=== PATIENT | female | born 1995 | race Caucasian/White ===

== ENCOUNTER 2024-11-05 10:05 | Observation (INO) ==
[2024-11-05 11:01] VITALS: RESP 18; TEMP 98.1
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
[2024-11-05] MEDS ORDERED: OXYTOCIN 30 UNITS/NSS 30 UNITS/500 ML BAG IV PRN (12:02)
[2024-11-05] MEDS ORDERED: LACTATED RINGER'S 1,000 ML IV PRN (12:02)
[2024-11-05] MEDS ORDERED: LIDOCAINE 1% LOCAL 20 ML VIAL INFIL PRN (12:02)
--- OUTSIDE RECORDS SUMMARY | 2024-11-05 12:03 | External Medical Summary | Summary of Care ---
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 Name Role Phone Unavailable Primary Care Provider Unavailabl e Reason for Visit * Reason Onset Date Comments Referral 10/14/2024 Encounter Details Date Type Department Care Team (Late st Contact Info) Description 10/14/2024 Telephone Divinity Teacher Obstetrics Maternal Medicine, [place] [address], [place] [id number] [place], Nurse Divinity Teacher [facility] [address] [place] [address] Referral Allergies Active Allergy Reactions Criticality Noted Date Comments Ciprofloxacin Nausea/vomiting Low 10/21/2012 documented as of this encounter (statuses as of 10/14/2024) Medications 27-1 MG Oral Tablet Take 1 Tablet by mouth every evening. Active Nicoderm CQ 7 MG/24HR Transdermal Patch [address] 1 Patch topically on the skin daily. 4 Active Methylphenidate HCl 5 MG Oral Tablet (Ritalin) Take 5 mg by mouth twice a day 4 Active Magnesium 250 MG Oral Capsule Take by mouth. Ac tive Famotidine 40 MG Oral Tablet (Pepcid) Take 1 Tablet by mouth in the morning. Active Omeprazole 20 MG Oral Capsule Delayed Release (PriLOSEC) Take 1 Capsule by mouth in the morning. 30 Capsule 1 5 Active OneTouch Verio Flex System w/Device KitIndications:G estational diabetes mellitus (GDM), antepartum, gestational diabetes method of control unspecified Use to test blood sugars 4 times daily (fasting, 1 hour after breakfast, lunch, and dinner) 1 Kit 5 Active RenaMed BiologicsTouch Verio In Vitro Strip (Glucose Blood)Indication s:Gestational diabetes mellitus (GDM), antepartum, gestational diabetes method of control unspecified Use to test blood sugars 4 times daily (fasting, 1 hour after breakfast, lunch, and dinner) 125 Strip 6 5 Active RenaMed BiologicsTouch Delica Lancets 30GIndications:G estational diabetes mellitus (GDM), antepartum, gestational diabetes method of control unspecified Use to test blood sugars 4 times daily (fasting, 1 hour after breakfast, lunch, and dinner) 200 Each 6 5 Active documented as of this encounter (statuses as of 10/14/2024) Active Problems Problem Noted Date Diagnosed Date History of IUFD 09/30/2024 Overview (09/30/2024): 33 wks following PPROM and cord prolapse. MFM recommends twice weekly NSTs at 31 weeks, delivery between 39w0d and 39w6d - can consider earlier for significant maternal anxiety. Pt requests weekly BPPs due to transportation concerns. 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 S/p right salping-oophorectomy Tumor confined to ovary. Fallopian tube negative for tumor; did not need treatment beyond surgery. Attention deficit hyperactivity disorder (ADHD) 06/17/2024 Overview (07/29/2024): History of ADHD On medication since teens. Ritalin stopped with knowledge of the Pt had upcoming appointment with Psych to discuss restart. Marijuana use during 06/17/2024 Overview (07/29/2024): Illicit use. Pt states a few times monthly. Last used in May 2024 Assessment & Plan (07/29/2024 1:36 PM EST): CONSIDERATIONS: Chemicals found in marijuana, such as tetrahydrocannabinol (THC), are distributed to the brain and fat and cross the placenta. THC also appears in breast milk. In utero exposure is associated with short and long-term morbidity. A positive screen result is reported to [facility]. RECOMMENDATIONS: Abstain from marijuana use in and while ; avoid secondhand exposure. Discontinue use of marijuana for medicinal purposes in favor of an alternative therapy for which there are better -specific safety data. Assessment & Plan (07/18/2024 4:12 PM EST): Reports she discontinued with . Tobacco use affecting , antepartum 05/31 Overview (07/29/2024): Smokes cigarettes < 1/2 pack per day Using Nicoderm patches currently Trying to cut down and quit Assessment & Plan (07/29/2024 1:35 PM EST): Strongly advised patient to stop using tobacco. Discussed that tobacco use is associated with increased risks of spontaneous miscarriage, labor and delivery, premature rupture of membranes, growth restriction, stillbirth, SIDS postnatally, and placental abnormalities such as previa or abruption. Smoking cessation aids such as the nicotine patch or Zyban are considered safer alternatives to tobacco use during . Encouraged patient to discuss with her primary provider for prescribing. For patients who report smoking 1 pack per day of cigarettes or greater during , we recommend Maternal Medicine ultrasound for growth at 28-30 weeks. Advised patient that the most successful method to quit smoking is if those around you do not smoke as well. Assessment & Plan (07/18/2024 4:10 PM EST): Reports smoking 4-5 cigarettes per day. Recommend cessation. , supervision, high-risk 06/17/2024 Overview (07/29/2024): 07/2021: intrauterine demise at 33 weeks --Pt states due to PROM and cord prolapse. Assessment & Plan (07/29/2024 1:41 PM EST): CONSIDERATIONS: The cause of a demise/stillbirth remains unidentified in almost 50% of cases, despite all evaluative efforts. Per review of available records regarding autopsy, karyotype, and placental examination from patient's prior intrauterine demise, the etiology of the prior loss was identified as PREMATURE RUPTURE OF MEMBRANES (PPROM) and cord prolapse . In pregnancies complicated by a previous stillbirth, the risk for stillbirth is up to 6-fold higher. The risk of recurrence is greater following gestational losses that occurred prior to 27 weeks than for later losses. RECOMMENDATIONS: Screen (if not already done) for syphilis, thyroid disorders, diabetes, and antiphospholipid antibody syndrome. Perform dating ultrasound to ensure accurate dating of . [facility] ultrasound for anatomy at 19-20 weeks gestation. Ultrasound for growth every 4 weeks starting at 28 weeks gestation. For loss > 20 weeks, twice weekly surveillance starting 1-2 weeks prior to the gestational age of the prior demise (though no earlier than 28 weeks and no later than 32 weeks). If greater than 32 weeks, begin 2x weekly NST at 32 weeks. Recommend delivery at 39 weeks (unless alternate timing is indicated per additional comorbidities). If elective early term delivery is being considered (37w0d to 38w6d) by her delivering provider secondary to severe anxiety, recommend Booster Pump Oiler counseling to include the potential risks of early term delivery. Assessment & Plan (07/18/2024 4:13 PM EST): Patient reports she had a large gush of fluid and felt like something was coming out. She called her OB and was told to monitor. The next morning patient reports she was evaluated and noted to have had a cord prolapse and fetus had already demised. Patient reports she did feel movement prior to PPROM. Near syncope 10/21/2012 Irritable bowel syndrome 10/19/2012 Depression complicating , antepartum Overview (07/29/2024): History of depression & anxiety No current medications Assessment & Plan (07/29/2024 1:41 PM EST): CONSIDERATIONS: Untreated maternal anxiety and/or depression may be associated with an increased risk of multiple poor obstetrical outcomes including miscarriages, low weight, and delivery. Women with a history of anxiety or depression are at risk for recurrence both during and/or the period. Studies of first-trimester SSRI exposure do not demonstrate consistent data to support an increased risk for structural malformations. Anti-anxiety or depression medications have been associated with transient effects (withdrawal syndrome). RECOMMENDATIONS: Mental illness can and should be treated during when the benefits of treatment outweigh potential risks. Referral to behavioral health services as clinically indicated. Estimated Date of Delivery Comme nts Yes 11/28/2024 Based on Ultraso und documented as of this encounter (statuses as of 10/14/2024) Resolved Problems Problem Noted Date Diagnosed Date Resolved Date with 22 completed weeks gestation 07/29/2024 07/29/2024 cardiac anomaly compli cating , antepartum 07/18/2024 09/27/2024 Overview (07/29/2024): See [facility] ultrasound report from 07/18/2024 Genetics counseling completed 07/20/2024 Pediatric Cardiology appointment scheduled 08/02/2024 Assessment & Plan (09/09/2024 3:27 PM EST): No VSD seen at cardiology visit 08/02. Also not seen today. Assessment & Plan (07/18/2024 4:16 PM EST): Muscular VSD measuring 1.5mm noted on ultrasound today. The remainder of the cardiac anatomy appeared unremarkable. We discussed that while large VSDs may require surgical repair, the natural history of most small muscular VSDs is to close prior to or within the first years of life. VSDs are associated with chromosomal aneuploidy. This is unlikely based on otherwise unremarkable anatomy and low risk Qnatal. Offered genetic counseling, which patient declined. Recommend follow up with pediatric cardiology. High-risk 06/17/2024 09/27/19 25 Syncope and collapse 10/19/2012 013 Asthma with severity to be determined 02/21/2010 06/30/2011 Overview (12/10/2015): Per Asthma Taxonomy ICD-10 update of inactive term Other acne 08/28/2008 02/14/2011 Routine child health exam 07/22/2002 Asthma, allergic 07/22/2002 02/21/2010 documented as of this encounter (statuses as of 10/14/2024) Immunizations Name Administration Dates Next Due H1N1 2008 Influenza, Intranasal 07/16/2009 HPV Vaccine, 4-Valent 08/28/2008,04/03/2008,10/2007 Influenza Vaccine, Live, Int ranasal, Trivalent (Flumist) 06/30/2011 Meningococcal Conjugate Vacc ine (Menactra/Menveo) 11/07/2011 Pneumococcal Polysaccharide PPV23 (Pneumovax) 05/06/2013 TDAP, Age 7 and older, IM (Adacel) 09/13/2024, Varicella Vaccine (Chicken Pox) 07/16/2009 documented as of this encounter Social History Tobacco Use Types Packs/Day Years Used Date Smoking Tobacco: Every Day Cigarettes 1 14.8 Started: 2009 Smokeless Tobacco: Never Comments:age 14 Smokes cigarettes , 1/2 pack per day Alcohol Use Standard Drinks/Week Comments Not Currently 0 (1 standard drink = 0.6 oz pur e alcohol) Hunger Vital Sign Answer Date Recorded Within the past 12 months, y ou worried that your food would run out before you got the money to buy more. Patient declined Within the past 12 months, t he food you bought just didn't last and you didn't have money to get more. Patient declined [place] Depression Scale Answer Date Recorded [place] Depression Scale Total 11 06/17/2024 The thought of harming myself has occurred to me . Never 06/17/2024 Childcare Answer Date Recorded Do you feel overwhelmed with taking care of a child, family member or friend? No 06/17/2024 Does your family need help f inding childcare? (Household - for ages 0-17 years) Not on file 06/17/2024 Clothing Answer Date Recorded Have you been unable to get clothing when it was really needed? No 06/17/2024 Is your family able to get c lothes or diapers when needed? (Household - for ages 0-17 years) Not on file 06/17/2024 Personal Safety Answer Date Recorded Do you feel unsafe or have concerns for your saf ety? No 06/17/2024 Do you have concerns for you r family's safety? (Household - for ages 0-17 years) Not on file 06/17/2024 Utilities Answer Date Recorded Do you have trouble paying y our heating, water, or electric bill? No 06/17/2024 Is your family able to pay t he heat, water, or electric bill? (Household - for ages 0-17 years) Not on file 06/17/2024 Does your family have access to good internet? (Household - for ages 0-17 years) Not on file 06/17/2024 Employment Status Answer Date Recorded Are you unemployed or without regular income? No 06/17/2024 Does the household have a re lar source of income? (Household - for ages 0-17 years) Not on file 06/17/2024 Social Connections Answer Date Recorded How often do you feel lonely or isolated from those around you? Sometimes 06/17/2024 Financial Resource Strain Answer Date R ecorded Do you have any trouble payi ng for your medications, or do you think you might in the future? No 06/17/2024 Does your family have troubl e paying for medicine? (Household - for ages 0-17 years) Not on file 06/17/2024 Transportation Needs Answer Date Record ed Do you have trouble getting a ride to medical visits or work? (Adult - for ages 18 years and over) Not on file 06/17/2024 Does your family have a hard time getting a ride to doctors visits? (Household - for ages 0-17 years) Not on file 06/17/2024 Has lack of transportation k ept you from medical appointments, meetings, work, or from getting things needed for daily living? Check all that apply. No 06/17/2024 Do you (or your family) have trouble finding or paying for a ride (transportation)? (Household - for ages 0-17 years) Not on file 06/17/2024 Housing Stability Answer Date Recorded Do you currently live in a s helter or have no steady place to sleep at night? No 06/17/2024 Do you think you are at risk of becoming homeless? (Adult - for ages 18 years and over) Not on file 06/17/2024 Does your family worry about paying for your home or becoming homeless? (Household - for ages 0-17 years) Not on file 1 Are you homeless or worried that you might be in the future? Yes 06/17/2024 Are you (or your family) vernell eless or worried that you might be in the future? (Household - for ages 0-17 years) Not on file Food Insecurity Answer Date Recorded Do you need food for this week? No 06/17/2024 Are you able to get enough f ood for your family? (Household - for ages 0-17 years) Not on file 06/17/2024 Does your family need food t his week? (Household - for ages 0-17 years) Not on file 06/17/2024 Do you always have enough fo od for your family? (Household - for ages 0-17 years) Not on file 06/17/2024 Food Insecurity Answer Date Recorded Within the past 12 months, y ou worried that your food would run out before you got the money to buy more. Patient declined Within the past 12 months, t he food you bought just didn't last and you didn't have money to get more. Patient declined Do you need food for this week? No 06/17/2024 Estimated Date of Delivery Comme nts Yes 11/28/2024 Based on Ultraso und Sex and Gender Information Value Date Recorded Sex Assigned at Female 06/17/2024 10:02 AM EDT Legal Sex Female 6:05 AM EST Gender Identity Female 06/17/2024 10:02 AM EDT Sexual Orientation Straight 06/17/2024 10 :02 AM EDT documented as of this encounter Miscellaneous Notes * Telephone Encounter - Juliet Razo OSA - 10/14/2024 3:31 PM EST Spoke with Sally. Appointment scheduled. Patient aware of date, time and location of Maternal Medicine appointment. Pt already had growth scan scheduled. * Telephone Encounter - Sunita Mandujano CCMA - 10/14/2024 9:49 AM EST Estimated Date of Delivery: 11/28/24 Please schedule for 45 MINUTE ADAPT WITH PHOTOGRAPHIC PRESS SCREWMAKER, in time frame of within 1 week at location [facility] with the indication of GDM. Please schedule growth in 3-4 weeks (around 11/03-11/10) Referring Provider: Nevaeh Baugh PA-C documented in this encounter Plan of Treatment Upcoming Encounters Date Type Department Care Team (Late st Contact Info) Description 10/19/2024 2:00 PM EST Imaging Radiology [address] [facility] [place] [id number] 10/20/2024 2:50 PM EST Telemedicine Divinity Teacher Obstetrics Maternal Medicine, [place] [address] [place] [address] Angela Means CRNP [address] [place] [address] 10/26/2024 2:00 PM EST Imaging Radiology [address] [facility] [place] [address] 10/26/2024 3:00 PM EST Office Visit Gynecology/Obstetrics [address] [place] [address] Ijeoma Mccurdy CRNP [address] [facility] [place] [id number] 11/01/2024 3:00 PM EST Telemedicine Virtual, Nutrition Services [address] [place] [address] Sunita Gray, RDN [address] [place] [id number] 11/03/2024 2:15 PM EST Office Visit Gynecology/Obstetrics [facility] [address] [place] [address] Ijeoma Mccurdy CRNP [address] [place] [id number] 11/03/2024 2:30 PM EST Imaging Maternal Medicine Imaging, [facility] [address] [place] [id number] 11/09/2024 2:00 PM EDT Imaging Radiology [address] [place] [address] 11/09/2024 3:00 PM EDT Office Visit Gynecology/Obstetrics [facility] [address] [place] [address] Ijeoma Mccurdy CRNP [address] [place] [id number] 11/16/2024 2:00 PM EDT Imaging Radiology [address] [place] [address] 11/16/2024 3:00 PM EDT Office Visit Gynecology/Obstetrics [facility] [address] [place] [address] Ijeoma Mccurdy CRNP [address] [place] [id number] 11/23/2024 2:00 PM EDT Imaging Radiology [address] [place] [address] 11/23/2024 3:00 PM EDT Office Visit Gynecology/Obstetrics Kyle Mariano [address] [place] [address] Ijeoma Mccurdy CRNP [address] [place] [id number] Health Maintenance Due Date Last Done Comments Depression Monitoring 2005 Pneumococcal Vaccine: Pediatrics (0 to 5 Years) and At-Risk Patients (6 to 18 Years and 19+ Years) (2 of 2 - PCV) 05/06/2014 05/06/2013 Pap Smear 09/14/2015 09/14/2012 Cervical Cancer Screening 01/01/2024 HPV/Co-Test 01/01/2024 COVID-19 Vaccine ( season) 2024 Influenza Vaccine (FLU shot) (#1) 2024 06/30/2011, 07/18/2002 DTap/Tdap Vaccines (9 - Td or Tdap) 09/13/2034 09/13/2024, 11/07/2011, 04/28/2005, Additional history exists Hepatitis B Vaccine Completed 07/22/1994, 02/26/1994, 1993 HPV (Gardasil) Vaccine Completed 8, 04/03/2008, 01/31/2008 MENINGOCOCCAL (MENACTRA/MENVEO) Completed 11/07/2011, 04/28/2005 Hepatitis C Screening Completed 03/05/2012 Meningitis B Vaccine (Bexsero/Trumemba) Aged Out No longer eligible based on patient's age to complete this topic documented as of this encounter Goals Goal Patient Goal Type Associated Problems Recent Progress Patient-Stated? Author Reminders Care Plan OB Reminders No Mychart, Provider documented as of this encounter Medical Devices Not on filedocumented as of this encounter Additional Health Concerns Active Problems Noted Date Diagnosed Date OB Reminders 08/22/2024 documented as of this encounter
--- OUTSIDE RECORDS SUMMARY | 2024-11-05 12:03 | External Medical Summary | Summary of Care ---
Author Name Unknown Organization [facility] Address [address] [place] [address] Phone [phone] Care Team Providers Care Instructor Of Nursing Name Role Phone Unavailable Primary Care Provider Unavailabl e Reason for Visit * Reason Comments DSMT INITIAL * Evaluate & Treat - Unlimited Visits (Within 10 days (routine)) - Authorized Specialty Diagnoses / Procedures Referred By Contviviana t Referred To Contact Senior Quality Manager / Nutrition Services Diagnoses Gestational diabetes mellitus (GDM), antepartum, gestational diabetes method of control unspecified Nevaeh Baugh PA-C [address] [place] [address] Phone: tel: fax: Referral ID Status Reason Start Date Expiration Date Visits Requested Visits Authorized [id number] Authorized Specialty Services Required 10/13/2024 10/19/[phone] Encounter Details Date Type Department Care Team (Late st Contact Info) Description 11/01/2024 3:00 PM EST Telemedicine Virtual, Nutrition Services [address] [facility] [id number] Sunita Gray, BRIAN [address] [place] [address] [place] [phone] Depression complicating , antepartum*; History of abnormal cervical Pap smear; Attention deficit hyperactivity disorder (ADHD); Marijuana use during ; Tobacco use affecting , antepartum; , supervision, high-risk; History of premature rupture of membranes (PPROM); History of IUFD; Diet controlled gestational diabetes mellitus (GDM) in third trimester; Gestational diabetes mellitus (GDM), antepartum, gestational diabetes method of control unspecified [O24.419] Allergies Active Allergy Reactions Criticality Noted Date Comments Ciprofloxacin Nausea/vomiting Low 10/21/2012 documented as of this encounter (statuses as of 11/02/2024) Medications 27-1 MG Oral Tablet Take 1 Tablet by mouth every evening. Active Nicoderm CQ 7 MG/24HR Transdermal Patch [address] 1 Patch topically on the skin daily. 4 Active Methylphenidate HCl 5 MG Oral Tablet (Ritalin) 2 Tablets. 4 Active Magnesium 250 MG Oral Capsule Take by mouth. Ac tive Famotidine 40 MG Oral Tablet (Pepcid) Take 1 Tablet by mouth in the morning. Active Omeprazole 20 MG Oral Capsule Delayed Release (PriLOSEC) Take 1 Capsule by mouth in the morning. 30 Capsule 1 5 Active Satya Inti Dharma Verio Flex System w/Device KitIndications:G estational diabetes mellitus (GDM), antepartum, gestational diabetes method of control unspecified Use to test blood sugars 4 times daily (fasting, 1 hour after breakfast, lunch, and dinner) 1 Kit 5 Active Viewpoint Digitalio In Vitro Strip (Glucose Blood)Indication s:Gestational diabetes mellitus (GDM), antepartum, gestational diabetes method of control unspecified Use to test blood sugars 4 times daily (fasting, 1 hour after breakfast, lunch, and dinner) 125 Strip 6 5 Active Satya Inti Dharma Delica Lancets 30GIndications:G estational diabetes mellitus (GDM), antepartum, gestational diabetes method of control unspecified Use to test blood sugars 4 times daily (fasting, 1 hour after breakfast, lunch, and dinner) 200 Each 6 5 Active Breast Pump Z39.1, double electric pump 1 Each 5 Active documented as of this encounter (statuses as of 11/02/2024) Active Problems Problem Noted Date Diagnosed Date with 34 completed weeks gestation 10/02 Diet controlled gestational diabetes mellitus (GDM) in third trimester 10/19/2024 Overview (10/31/2024): Diagnosed at 34 weeks Nutrition consult ordered Lab Results Component Value Date/Time 50-G GESTATIONAL GLUCOSE, 1 HOUR - [facility] 174 (H) 09/13/2024 12:50 PM 100-G GESTATIONAL GLUCOSE, 1 HOUR - [facility] 202 (H) 10/12/2024 12:30 PM 100-G GESTATIONAL GLUCOSE, 2 HOUR - [facility] 171 (H) 10/12/2024 01:30 PM 100-G GESTATIONAL GLUCOSE, 3 HOUR - [facility] 139 10/12/2024 02:27 PM 100-G GESTATIONAL GLUCOSE, FASTING - [facility] 94 10/12/2024 11:28 AM 10/20/24: MFM ADAPT consult complete. Referred to Current [facility]. Instructions provided to report blood sugars each week for MFM review; Patient does not have access to her BG log at this time; Reports her FBS running around 100 or less - reports she does eat during the night, postprandial values running high, as she didn't know how to manage her diet. Reviewed diet & exercise recommendations, bedtime snack and fasting overnight for no longer than 8-10 hours. 10/26/24: RPM reviewed; just enrolled yesterday, readings stable 10/31/[id number]-[id number] missed readings. Only one fasting blood sugars reported in 6 days. Reported values all within normal limits with exception of one post prandial dinner reading = 143. Sent message to be consistent with testing four times daily and reporting. Assessment & Plan (10/20/2024 3:03 PM EST): CONSIDERATIONS: Reviewed etiology and risks associated with gestational diabetes mellitus (GDM), including risks to , fetus, and maternal progression to Type 2 DM. Instructed on proper use of glucometer; supplies ordered, if indicated. Advised that life-long screening for diabetes is recommended every 1-3 years. RECOMMENDATIONS: Recommend monitoring blood sugars with daily fasting blood sugar (maintained at less than 95) and 1 hour postprandial measurements (maintained at less than 140). Medications should be adjusted to maintain these target values. Report levels to MFM (Maternal- Medicine) weekly. Recommend nutrition consult with RDN (Registered Dietitian Storage Garage Attendant). Lifestyle changes are also indicated including optimizing gestational weight gain and physical activity of 30 minutes per day, if not otherwise contraindicated in . Insulin is preferred if medications are indicated to optimize euglycemia. Metformin (preferred over glyburide) may also be used in some circumstances. Reviewed the risks and benefits of each. Recommend ultrasound, surveillance and delivery as follows: A1GDM, delivery should be accomplished by 41w0d. A2GDM, recommend growth assessment with MFM every 4 weeks, initiate surveillance with twice weekly NSTs at 32 weeks and continue until delivery at 39 weeks. Recommend intrapartum monitoring every 1-2 hours (A2GDM) or every 4 hours (A1GDM) and treat with insulin if indicated. Recommend 2-hour glucose tolerance testing with 75-gram glucose load during admission (or 6-8 weeks if not completed). History of IUFD 09/30/2024 Overview (09/30/2024): 33 wks following PPROM and cord prolapse. [facility] recommends twice weekly NSTs at 31 weeks, delivery between 39w0d and 39w6d - can consider earlier for significant maternal anxiety. Pt requests weekly BPPs due to transportation concerns. 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 [...] ultrasound to ensure accurate dating of . [facility] ultrasound for anatomy at 19-20 weeks gestation. [...] delivering provider secondary to severe anxiety, recommend Cfd Engineer counseling to include the potential risks of [...] as of this encounter (statuses as of 11/02/2024) Resolved Problems Problem Noted Date Diagnosed Date Resolved Date with 22 completed weeks gestation 07/29/2024 07/29/2024 cardiac anomaly compli cating , antepartum 07/18/2024 09/27/2024 Overview (07/29/2024): See [facility] ultrasound report from 07/18/2024 Genetics counseling completed [...] as of this encounter (statuses as of 11/02/2024) Immunizations Name Administration Dates Next Due H1N1 2009 Influenza, Intranasal 07/16/2009 HPV Vaccine, 4-Valent 08/28/2008,04/03/2008,10/2007 [...] have money to get more. Patient declined [place] Depression Scale Answer Date Recorded [place] Depression Scale Total 11 06/17/2024 The thought [...] No 06/17/2024 Does the household have a [facility] source of income? (Household - for ages [...] AM EDT documented as of this encounter Patient Instructions * Patient Instructions* Sunita Gray RDN - 11/01/2024 4:20 PM EST Nutrition: To improve blood glucose control I will follow meal plan of Breakfast: 15-30 grams carbohydrate Snack: 15-30 grams carbohydrate Lunch: 30-60 grams carbohydrate Snack: 15-30 grams carbohydrate Dinner: 30-60 grams carbohydrate Bedtime snack: 15-30 grams carbohydrate documented in this encounter Progress Notes * Sunita Gray RDN - 11/01/2024 4:17 PM EST DIABETES SELF-MANAGEMENT TRAINING Gestational Diabetes Group Session Date: 11/01/2024 Patient location: HOME. I was in a hospital or clinic location. After connecting through [employer],patient was verified with two unique identifiers. 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 Methods to assure confidentiality were taken. Patient acknowledged consent and understanding of pr ivacy and security of the Telemedicine visit. The patient agreed to participate. ADA referral in place? Yes What diabetes concerns and/or barriers to care would you like to discuss in your appointment: Diabetes with gestational diabetes. Here for education. What is gestational diabetes? What are the risks to me and my baby? When do I test my blood sugar? Will I need medication for gestational diabetes? What diet do I follow for gestational diabetes? What does exercise do to my blood sugar? Will this go away for me and the baby? What type of diabetes to you have? Gestational Diabetes DSMT Initial Visit Assessment of Content Areas: Choose the answer that represents the participant's competency in each area. All need to be assessed at initial. Areas taught must match intervention. If content area not assessed and/or intervened today, it will be deferred to future session. Diabetes disease process and treatment process: Needs instruction (1) Incorporating nutrition management into lifestyle: Needs instruction (1) Incorporating physical activity into lifestyle: Needs instruction (1) Using medications safely: Needs instruction (1) Monitoring blood glucose, interpreting and using results: Needs instruction (1) Prevention, detection, and treatment of acute complications: Needs instruction (1) Prevention, detection, and treatment of chronic complications: Needs instruction (1) Developing strategies to address psychosocial issues: Needs instruction (1) Developing strategies to promote health/change behavior: Needs instruction (1) Nutrition Diagnosis: Food and Nutrition Related Knowledge Deficit related to limited prior nutrition- related education as evidenced by referral to be seen for gestational diabetes and enrolled in group session for education. DSMT/ Diabetes MNT intervention: Pathophysiology: Defined disease process. Defined and discussed role of insulin resistance. Nutrition: GDM nutrition: Educated on rationale and guidelines of nutritional management of GDM. Emphasis on need for carbohydrate control/consistency with structured meal schedule. Taught participant how to read a food label. Importance of also meeting nutritional needs of reinforced. Stressed importance of avoiding sugar sweetened beverages, fruit juices. Encouraged bedtime snack 8-10 hours before fasting test the next day. Recommended starting meal pattern provided = Breakfast: 15-30 grams carbohydrate Snack: 15-30 grams carbohydrate Lunch: 30-60 grams carbohydrate Snack: 15-30 grams carbohydrate Dinner: 30-60 grams carbohydrate Bedtime snack: 15-30 grams carbohydrate Educated on using the plate method as a guide for balancing meals during Educated on nutrition related items affecting such as calcium, fish, caffeine, herbal supplements, and preventing listeria. Encouraged prenatals with folic acid, potassium iodide, and DHA/EPA. Physical Activity: Educated on the role of physical activity on glucose control. Educated on the options for physical activity given participant's diabetes complications or other health issues. Medication: Reviewed that due to hormonal insulin resistance in , there may be a need for medication to achieve blood glucose levels in target. Monitoring: blood glucose and targets: Educated on blood glucose monitoring and recommended testing times of fasting and 1-OR 2-hour post meals with targets of less than 95 fasting, 1-hour post meal ofless than 140 OR 2-hour post meal of less than 120. Encouraged logging blood glucoses and reported readings to care team. Provided troubleshooting trick/tips for [facility] Tomi (Maternal Medicine) Educated on ways to improve fasting glucose levels Chronic Complications: Educated on the risks of uncontrolled blood glucose during and post for mom and /. Promote health/Change behavior: Reviewed importance of glucose screening after having gestational diabetes. Participant Selected Behavioral Objective: Nutrition: To improve blood glucose control I will follow meal plan of Breakfast: 15-30 grams carbohydrate Snack: 15-30 grams carbohydrate Lunch: 30-60 grams carbohydrate Snack: 15-30 grams carbohydrate Dinner: 30-60 grams carbohydrate Bedtime snack: 15-30 grams carbohydrate Education materials given to participant/caregiver and reviewed during today's visit: Belinda Materials: What is Gestational Diabetes? Healthy Meals for Diabetes Possible Future Topics: Content areas that were not assessed in first visit: Acute complications Psychosocial/healthy coping Time Spent With Patient: Time in: 3:01 PM Time out: 3:59 PM Billing: MNT: 60 minutes This visit was completed as a virtual group session. Plan for Return: 2-4 week return Participant provided with contact information for Diabetes Care and Medical Sociologist. All isinger providers within the system are able to see ADA education and outcomes within the participant electronic medical record. Sunita Gray RDN, NUTRITION SERVICES VIRTUAL Diabetes Care and Medical Sociologist documented in this encounter Miscellaneous Notes * Pt Handout (on AVS) - Sunita Gray RDN - 11/01/2024 4:19 PM EST Images from the original note were not included. [id number] What Is Gestational Diabetes? Gestational diabetes is a type of diabetes that happens during . Unlike type 1 diabetes, gestational diabetes is not caused by having too little insulin. Instead, hormones made by your placenta keep your body from using insulin as it should. This is called insulin resistance. Blood sugar (glucose) then builds up in your blood instead of being absorbed by the cells in your body and used for energy. This can cause high blood sugar and can cause problems for both you and your baby. You can take steps to control your blood sugar. This will help reduce the risks for you and your baby. Managing gestational diabetes You need to control your blood sugar while you are . Your healthcare team will help you make a plan to do this. This plan will include: Eating the right foods. This is the main way to control your blood sugar. You need to eat a variety of healthy foods each day. To help you plan changes in your diet, you will likely work with a registered dietitian (OSCAR). This is an expert on food and nutrition. The dietitian may have you take part in a nutrition program to help you reach your goals. Getting exercise. Your body uses more blood sugar when you exercise. Your healthcare team can help you pick the best kinds of exercise for you. Checking your blood sugar. You will likely need to check your blood sugar at home. You will do this 2 or more times a day. You will likely check your fasting blood sugar and after meal (postprandial) blood sugar. Your healthcare team will teach you how. They will talk with you about your blood sugar goals. Your blood sugar may also be tested every week or so at a clinic. If your blood sugar stays too high, you may need to have insulin shots during your . Risks to your baby If your blood sugar stays high, your baby is at risk for these problems: Your baby may grow too large. If your blood sugar stays too high, your baby may grow too large. This is called macrosomia. This means a baby is too big for a safe vaginal . A large baby may get their shoulder stuck behind the pubic bone during . This is called shoulder dystocia. The baby's arms and shoulders could be injured. This may cause permanent arm damage. The baby may also have low oxygen levels (hypoxia) while they are stuck. Hypoxia can lead to cerebral palsy. In rare cases, it can lead to . Your baby?s organs may not be fully grown at . If you have diabetes, your baby may need to be delivered early. This may be because of problems with the . Or it may be because of risks to you or your baby. If your baby is delivered early, their lungs may not work well. This is called respiratory distress syndrome. Your baby's liver also may not work normally. And your baby may have yellow color in their skin and eyes (jaundice) after . Your baby?s blood sugar may be low after . If your blood sugar is too high, your baby makesextra insulin. The baby will keep making extra insulin right after . Your baby may need to be treated for low blood sugar. Your baby could be stillborn. This is very rare. But your baby could before if your blood sugar stays high for too long. Risks to you If you don?t control your blood sugar, you are more likely to have: High blood pressure. High blood sugar makes you more likely to have high blood pressure during your . This is a danger to your health. It could lead to early delivery for your baby. Infections. High blood sugar makes you more likely to have bladder, kidney, and vaginal infections. Trouble breathing. You may feel short of breath. High blood sugar can cause too much fluid around the baby. This is called polyhydramnios. Your abdomen gets big and pushes up on your lungs. Difficult labor. Your delivery may be harder. And your recovery may take longer. If your blood sugar stays too high, your baby may grow too large. A large baby might cause injury to you during . Or the baby may have to be delivered by section (). This means making a cut (incision) in your abdomen and uterus. A is a common risk of gestational diabetes. Reduce your future risk for type 2 diabetes Women who have gestational diabetes are at higher risk of type 2 diabetes later. You are also at higher risk for gestational diabetes in your next . You can help reduce your risk in these ways: Lose excess weight. Be as active as you can. Eat more fruits and vegetables. Eat fewer processed foods. Get regular blood tests to check for diabetes. Breastfeed your baby. Who is at risk for gestational diabetes? You're more at risk if you: Are overweight Have a family history of diabetes Have had a baby who before Had gestational diabetes in the past Are , , , [place] or [place] , or How daily issues affect your health Many things in your daily life impact your health. This can include transportation, money problems,housing, access to food, and childcare. If you can?t get to medical appointments, you may not receive the care you need. When money is tight, it may be difficult to pay for medicines. And living far from a grocery store can make it hard to buy healthy food. If you have concerns in any of these or other areas, talk with your healthcare team. They may know of local resources to assist you. Or they may have a staff person who can help. Last Reviewed Date: 2023 00:00:00 [id number] [employer]. All rights reserved. This information is not intended as a substitute for professional medical care. Always follow your healthcare professional's instructions. * Pt Handout (on AVS) - Sunita Gray RDN - 11/01/2024 4:19 PM EST Images from the original note were not included. [id number] Healthy Meals for Diabetes Figuring out what to eat can be one of the most confusing parts of diabetes. It will help you to have a meal plan. You can ask your healthcare team to help you make a meal plan that fits your needs. Your meal plan tells you when to eat your meals and snacks, what kinds of foods to eat, and how muchof each food to eat. You don?t have to give up all the foods you like but following some guidelines will set you up for success in managing your diabetes. A healthcare provider will help you develop a meal plan that fits your needs. Choose healthy carbohydrates Starches, sugars, and fiber are all types of carbohydrates (carbs). Carbs can get a bad reputation since they affect your blood sugar the most. It is important to remember that your body benefits from the right amount of healthy carbs. Fiber can help lower your cholesterol and triglycerides. Fiber is also healthy for your heart. You should have 20 to 35 grams of total fiber each day. Fiber comes from plants. Fiber-rich foods include: Whole-grain breads and cereals Nuts Brown rice and quinoa Whole-wheat pasta Fruits and vegetables Beans and peas Keep track of the amount of carbs you eat. This can help you keep the right balance of physical activity and medicine. The amount of carbs needed will vary for each person. It depends on many things such as your health, the medicines you take, and how active you are. Your healthcare team will help you figure out the right amount of carbs for you. You may start with around 45 to 60 grams of carbs per meal, depending on your needs. Here are some examples of foods that have about 15 grams of carbs (1 serving of carbs): 1/2 cup of canned or frozen fruit A small piece of fresh fruit (4 ounces) 1 slice of bread 1/2 cup of oatmeal 1/3 cup of rice 4 to 6 crackers 1/2 Fijian muffin 1/2 cup of black beans 1/4 of a large baked potato (3 ounces) 2/3 cup of plain fat-free yogurt 1 cup of soup 1/2 cup of casserole 6 chicken nuggets [id number] brownie or cake without frosting 2 small cookies 1/2 cup of ice cream or sherbet Choose healthy protein foods Proteins play a campbell role in building healthy muscles, bones, skin, and many other parts of your body. Eating protein that's low in fat can help you control your weight. It also helps keep your heart healthy. Low-fat protein foods include: Fish Plant proteins, such as lentils, beans, peas, nuts, and soy products like tofu and soymilk Lean meat with all visible fat removed Poultry with the skin removed Low-fat or nonfat milk, cheese, and yogurt Limit unhealthy fats and sugar Saturated and trans fats are unhealthy for your heart. They raise LDL (bad) cholesterol. Fat is also high in calories. To cut down on unhealthy fats and sugar, limit these foods: Butter or margarine Palm and palm kernel oils and coconut oil Cream Cheese Carbajal Lunch meats Ice cream Sweet bakery goods such as pies, muffins, and donuts Jams and jellies Candy bars Regular sodas How much to eat The amount of food you eat affects your blood sugar. It also affects your weight. Your healthcare team will tell you how much of each type of food you should eat. Use measuring cups and spoons and a food scale to measure serving sizes. Learn what a correct serving size looks like on your plate. This will help when you're away fromhome and can?t measure your servings. For instance, a serving of meat is about the size of the palmof your hand. Eat only the number of servings given on your meal plan for each food. Don?t take seconds. Learn to read food labels. Be sure to look at serving size, total carbohydrates, fiber, calories, sugar, salt, and saturated and trans fats. Look for healthier options such as foods with no added sugar or salt. Plan ahead for parties. Then you can still have a good time without diving into unhealthy food choices. Bring a healthy dish to [facility]. Choose healthy snacks When it comes to snacks, we often think about foods with added sugar and fats. But there are many other options for healthier snack choices. Here are a few snack ideas to choose from: Snacks with less than 5 grams of carbohydrates 1 piece of string cheese 3 celery sticks plus 1 tablespoon of peanut butter 5 machado tomatoes plus 1 tablespoon of ranch dressing 1 hard-boiled egg 1/4 cup of fresh blueberries 5 baby carrots 1 cup of light popcorn 1/2 cup of sugar-free gelatin 15 almonds Snacks with about 10 to 20 grams of carbohydrates 1/3 cup of hummus plus 1 cup of fresh cut non-starchy vegetables (carrots, green peppers, broccoli, celery, or a mix) 1/2 cup of fresh or canned fruit plus 1/4 cup of cottage cheese 1/2 cup of tuna salad with 4 crackers 2 rice cakes and a tablespoon of peanut butter 1 small apple or orange 3 cups light popcorn 1/2 of a turkey sandwich (1 slice of whole-wheat bread, 2 ounces of turkey, and mustard) Portion sizes are important for controlling your blood sugar and staying at a healthy weight. Stockup on healthy snack foods so you always have them on hand. When to eat Your meal plan will likely include breakfast, lunch, dinner, and some snacks. Try to eat your meals and snacks at about the same times each day. Eat all your meals and snacks. Skipping a meal or snack can make your blood sugar drop too low. It can also cause you to eat too much at the next meal or snack. Then your blood sugar could get toohigh. Be patient It can be stressful trying to figure out what to eat. But over time, you?ll form new habits around your meal plan and healthy guidelines. Then eating right for your blood sugar will be much easier. Last Reviewed Date: 2023 00:00:00 [id number] [employer]. All rights reserved. This information is not intended as a substitute for professional medical care. Always follow your healthcare professional's instructions. documented in this encounter Plan of Treatment Upcoming Encounters Date Type Department Care Team (Late st Contact Info) Description 11/03/2024 2:15 PM EST Office Visit Gynecology/Obstetrics [facility] [address] [place] [address] Ijeoma Mccurdy CRNP [address] [place] [address] 11/03/2024 2:30 PM EST Imaging Maternal Medicine Imaging, [facility] [address] [place] [phone] 11/09/2024 2:00 PM EDT Imaging Radiology [address] [place] [address] 11/09/2024 3:00 PM EDT Office Visit Gynecology/Obstetrics [facility] [address] [place] [address] Ijeoma Mccurdy CRNP [address] [place] [address] 11/16/2024 2:00 PM EDT Imaging Radiology [address] [place] [address] 11/16/2024 3:00 PM EDT Office Visit Gynecology/Obstetrics [facility] [address] [place] [address] Ijeoma Mccurdy CRNP [address] [place] [address] 11/23/2024 2:00 PM EDT Imaging Radiology [address] [place] [address] 11/23/2024 3:00 PM EDT Office Visit Gynecology/Obstetrics [facility] [address] [place] [address] Ijeoma Mccurdy CRNP [address] [place] [address] Scheduled Referrals Name Type Priority Associated Diagnoses Orde r Schedule DIABETES MANAGEMENT EDUCATION (ADA) REFERRAL Referral Within 10 days (routine) Gestational diabetes mellitus (GDM), antepartum, gestational diabetes method of control unspecified Ordered: 10/13/2024 Health Maintenance Due Date Last Done Comments [...] Not on filedocumented as of this encounter Visit Diagnoses Diagnosis Tobacco use affecting , antepartum- Primary Marijuana use during History of stillbirth with other poor reproductive history 21 weeks gestation of state, incidental Anomaly of heart of fetus affecting , antepartum, single or unspecified fetus Prior with demise, antepartum, second trimester- Primary Tobacco use affecting , antepartum Marijuana use during Anomaly of heart of fetus affecting , antepartum, single or unspecified fetus Attention deficit hyperactivity disorder (ADHD), unspecified ADHD type Sertoli-Leydig cell tumor of ovary, right Depression complicating , antepartum Mental disorders of mother, antepartum Supervision of high risk in second trimester Unspecified high-risk with 22 completed weeks gestation Diet controlled gestational diabetes mellitus (GDM) in third trimester- Primary Supervision of high risk in third trimester Unspecified high-risk with 34 completed weeks gestation Depression complicating , antepartum- Primary Mental disorders of mother, antepartum History of abnormal cervical Pap smear Personal history of other genital system and obstetric disorders Attention deficit hyperactivity disorder (ADHD) Attention deficit disorder with hyperactivity Marijuana use during Tobacco use affecting , antepartum , supervision, high-risk Unspecified high-risk History of premature rupture of membranes (PPROM) History of IUFD Gestational diabetes mellitus (GDM), antepartum, gestational diabetes method of control unspecified [O24.419] documented in this encounter Additional Health Concerns Active Problems Noted Date Diagnosed Date OB Reminders 08/22/2024 documented as of this encounter
--- OUTSIDE RECORDS SUMMARY | 2024-11-05 12:03 | External Medical Summary ---
Author Name Unknown Address Unknown Organization K01:[facility] [place] [address] [place] [address] Laboratory Report Ordering Provider Test Date Status LISSETTE ZENG 11/03/2024 14:37:52 Final Observation Date Value Abnormality Reference (Units ) Status Streptococcus agalactiae DNA [Presence] in Specimen by ETIENNE with probe detection 11/03/2024 14:37:52 Negative Negative Final No Group B Streptococcus det ected by culture-enhanced PCR (amplified probe). GBS GBSCT - [facility] 11/03/2024 14:37:52 0.0 Final GBS SPCCT - [facility] 11/03/2024 14:37:52 32.7 Final Performing Location [facility] [place] - [address] [address]
--- OUTSIDE RECORDS SUMMARY | 2024-11-05 12:03 | External Medical Summary | Summary of Care ---
Author Name Unknown Organization [facility] Address [address] [place] [address] Phone [phone] Care Team Providers Care Invasive Manager Name Role Phone Unavailable Primary Care Provider Unavailabl e Encounter Details Date Type Department Care Team (Late st Contact Info) Description 11/03/2024 2:30 PM EST Office Visit Home Health Scheduler Obstetrics Maternal Medicine, [address] [place] [address] Teresa Cantu, DO [address] [place], [place] [id number] Diet controlled gestational diabetes mellitus (GDM) in third trimester*; History of IUFD; Ultrasound for screening for growth restriction; 36 weeks gestation of Allergies Active Allergy Reactions Criticality Noted Date Comments Ciprofloxacin Nausea/vomiting Low 10/21/2012 documented as of this encounter (statuses as of 11/04/2024) Medications 27-1 MG Oral Tablet Take 1 [...] the morning. 30 Capsule 1 5 Active Acertiv Verio Flex System w/Device KitIndications:G estational diabetes mellitus (GDM), antepartum, gestational diabetes method of control unspecified Use to test blood sugars 4 times daily (fasting, 1 hour after breakfast, lunch, and dinner) 1 Kit 5 Active Mobile Safe Case In Vitro Strip (Glucose Blood)Indication s:Gestational diabetes mellitus (GDM), antepartum, gestational diabetes method of control unspecified Use to test blood sugars 4 times daily (fasting, 1 hour after breakfast, lunch, and dinner) 125 Strip 6 5 Active Acertiv Delica Lancets 30GIndications:G estational diabetes mellitus (GDM), antepartum, gestational diabetes method of control unspecified Use to test blood sugars 4 times daily (fasting, 1 hour after breakfast, lunch, and dinner) 200 Each 6 5 Active Breast Pump Z39.1, double electric pump 1 Each 5 Active documented as of this encounter (statuses as of 11/04/2024) Active Problems Problem Noted Date Diagnosed Date [...] RPM reviewed; just enrolled yesterday, readings stable 10/31/[id number] missed readings. Only one fasting blood sugars [...] Recommend nutrition consult with RDN (Registered Dietitian 3D Modeler). 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 [...] ultrasound to ensure accurate dating of . M ultrasound for anatomy at 19-20 weeks gestation. [...] delivering provider secondary to severe anxiety, recommend Activities Counselor counseling to include the potential risks of [...] as of this encounter (statuses as of 11/04/2024) Resolved Problems Problem Noted Date Diagnosed Date Resolved Date with 22 completed weeks gestation 07/29/2024 07/29/2024 cardiac anomaly compli cating , antepartum 07/18/2024 09/27/2024 Overview (07/29/2024): See [facility] ultrasound report from 07/18/2024 Genetics counseling [...] as of this encounter (statuses as of 11/04/2024) Immunizations Name Administration Dates Next Due H1N1 2009 Influenza, Intranasal 07/16/2009 HPV Vaccine, 4-Valent 08/28/2008,04/03/2008,0610/2007 Influenza Vaccine, Live, Int ranasal, Trivalent (Flumist) [...] have money to get more. Patient declined [place] Depression Scale Answer Date Recorded [place] Depression Scale Total 11 06/17/2024 The thought [...] 06/17/2024 Does the household have a re gular source of income? (Household - for ages [...] AM EDT documented as of this encounter Progress Notes * Teresa Cantu DO - 11/03/2024 8:33 PM EST Sally presented today at 36w3d for an ultrasound for the following indications: Diet controlled gestational diabetes mellitus (GDM) in third trimester History of IUFD Ultrasound for screening for growth restriction 36 weeks gestation of Ultrasound summary: Patient presented at 36w 3d for growth assessment. Normal growth with EFW 2549 g at 18%ile. Normal SHAD at 8.2 cm. Cephalic presentation. BPP 04/07. I reviewed the ultrasound images. Sally was given the opportunity to meet with me if she had any questions. Please refer to the ultrasound report for additional details about today's ultrasound examination. RECOMMENDATIONS: Follow up with MFM for ultrasound as clinically indicated. 2x weekly NSTs. See prior formal MFM consultation note. Thank you for allowing us to participate in the care of this patient. Please call with any questions. Teresa Cantu DO 11/03/2024 8:33 PM documented in this encounter Plan of Treatment Upcoming Encounters Date Type Department Care Team (Late st Contact Info) Description 11/09/2024 2:00 PM EDT Imaging Radiology [address] [place] [address] 11/09/2024 3:00 PM EDT Office Visit Gynecology/Obstetrics [facility] [address] [place] [address] Ijeoma Mccurdy CRNP [address] [place] [address] 11/16/2024 2:00 PM EDT Imaging Radiology [address] [place] [address] 11/16/2024 3:00 PM EDT Office Visit Gynecology/Obstetrics [facility] [address] [place] [address] Ijeoma Mccurdy CRNP [address] [place] [address] 11/23/2024 2:00 PM EDT Imaging Radiology [address] [place] [address] 11/23/2024 3:00 PM EDT Office Visit Gynecology/Obstetrics [facility] [address] [place] [address] Ijeoma Mccurdy CRNP [address] [place] [phone] Health Maintenance Due Date Last Done Comments [...] 07/22/1994, 02/26/1994, 1993 HPV (Gardasil) Vaccine Completed , 04/03/2008, 01/31/2008 MENINGOCOCCAL (MENACTRA/MENVEO) Completed 11/07/2011, 04/28/2005 [...] Unspecified high-risk with 34 completed weeks gestation Diet controlled gestational diabetes mellitus (GDM) in third trimester- Primary History of IUFD Ultrasound for screening for growth restriction screening for growth retardation using ultrasonics 36 weeks gestation of state, incidental documented in this encounter Additional Health Concerns Active Problems Noted Date Diagnosed Date OB Reminders 08/22/2024 documented as of this encounter
--- OUTSIDE RECORDS SUMMARY | 2024-11-05 12:03 | External Medical Summary ---
Author Name Unknown Address Unknown Organization K01:[facility] [place] - [address] [place] [address] Laboratory Report Ordering Provider Test Date Status MAGONICOLLE 10/12/2024 13:30:17 Final Observation Date Value Abnormality Reference (Units ) Status Glucose, 2-hr post glucose challenge 10/12/2024 13:30:17 171 Above high normal 70-154 (mg/dL) Final Performing Location [facility] [place] - [address] [place] [address]
--- OUTSIDE RECORDS SUMMARY | 2024-11-05 12:03 | External Medical Summary ---
Author Name Unknown Address Unknown Organization K01:[facility] [place] [address] [place] [address] Laboratory Report Ordering Provider Test Date Status NICOLLE MERCEDES 10/12/2024 12:30:16 Final Observation Date Value Abnormality Reference (Units ) Status Glucose [Mass/volume] in Serum or Plasma --1 hour post dose glucose 10/12/2024 12:30:16 202 Above high normal 70-179 (mg/dL) Final Performing Location [facility] [place] - [address] [place] [address]
--- OUTSIDE RECORDS SUMMARY | 2024-11-05 12:03 | External Medical Summary | Summary of Care ---
Author Name Unknown Organization [facility] Address [address] [facility] [place] [address] Phone [phone] Care Team Providers Care Copy Machine Operator Name Role Phone Unavailable Primary Care Provider Unavailabl e Reason for Visit * Reason Comments Return Visit Encounter Details Date Type Department Care Team (Late st Contact Info) Description 11/03/2024 2:15 PM EST Office Visit Gynecology/Obstetric s [facility] [address] [place] [address] Ijeoma Mccurdy CRNP [address] [place] [phone] Supervision of high risk in third trimester*; History of premature rupture of membranes (PPROM); History of IUFD; Depression complicating , antepartum; History of abnormal cervical Pap smear; Marijuana use during ; Tobacco use affecting , antepartum; Diet controlled gestational diabetes mellitus (GDM) in third trimester Allergies Active Allergy Reactions Criticality Noted Date Comments Ciprofloxacin Nausea/vomiting Low 10/21/2012 documented as of this encounter (statuses as of 11/03/2024) Medications 27-1 MG Oral Tablet Take 1 [...] the morning. 30 Capsule 1 5 Active [employer] Verio Flex System w/Device KitIndications:G estational diabetes mellitus (GDM), antepartum, gestational diabetes method of control unspecified Use to test blood sugars 4 times daily (fasting, 1 hour after breakfast, lunch, and dinner) 1 Kit 5 Active GetO2Touch Verio In Vitro Strip (Glucose Blood)Indication s:Gestational diabetes mellitus (GDM), antepartum, gestational diabetes method of control unspecified Use to test blood sugars 4 times daily (fasting, 1 hour after breakfast, lunch, and dinner) 125 Strip 6 5 Active GetO2Touch Delica Lancets 30GIndications:G estational diabetes mellitus (GDM), antepartum, gestational diabetes method of control unspecified Use to test blood sugars 4 times daily (fasting, 1 hour after breakfast, lunch, and dinner) 200 Each 6 5 Active Breast Pump Z39.1, double electric pump 1 Each 5 Active documented as of this encounter (statuses as of 11/03/2024) Active Problems Problem Noted Date Diagnosed Date [...] RPM reviewed; just enrolled yesterday, readings stable 10/31/20245172-[id number] missed readings. Only one fasting blood sugars [...] Recommend nutrition consult with RDN (Registered Dietitian Senior Clinical Research Associate). Lifestyle changes are also indicated including optimizing [...] 33 wks following PPROM and cord prolapse. [facility] recommends twice weekly NSTs at 31 weeks, delivery between 39w0d and 39w6d - can consider earlier for significant maternal anxiety. Pt requests weekly BPPs due to transportation concerns. 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 [...] ultrasound to ensure accurate dating of . [facility] ultrasound for anatomy at 19-20 [...] delivering provider secondary to severe anxiety, recommend Plant Care Worker counseling to include the potential risks of [...] as of this encounter (statuses as of 11/03/2024) Resolved Problems Problem Noted Date Diagnosed Date Resolved Date with 22 completed weeks gestation 07/29/2024 07/29/2024 cardiac anomaly compli cating , antepartum 07/18/2024 09/27/2024 Overview (07/29/2024): See [facility] ultrasound report from 07/18/2024 Genetics [...] as of this encounter (statuses as of 11/03/2024) Immunizations Name Administration Dates Next Due H1N1 [...] have money to get more. Patient declined [place] Depression Scale Answer Date Recorded [place] Depression Scale Total 11 06/17/2024 The thought [...] AM EDT documented as of this encounter Last Filed Vital Signs Vital Sign Reading Time Taken Comments Blood Pressure 132/84 11/03/2024 2:45 PM EST Pulse - - Temperature - - Respiratory Rate - - Oxygen Saturation - - Inhaled Oxygen Concentration - - Weight 80.2 kg (176 lb 12.8 oz) 11/03/2024 2:08 PM EST Height - - Body Mass Index 29.42 10/26/2024 2:50 PM EST documented in this encounter Progress Notes * Ijeoma Mccurdy CRNP - 11/03/2024 2:44 PM EST 36w3d Feels overwhelmed with GDM. Doing her best with diet, only had elevated readings after going to [employer]. Having pain/tingling in her hands when she is trying to sleep. She reports good FM. No contractions or bleeding. Has MFM appt following this visit for growth and BPP. GBS today. Pt requesting cervical check as well. IOL scheduled. 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 Name of raw mill operator: GAYLE Spain documented in this encounter Nursing Notes * Leila Clay, MED ASSIST - 11/03/2024 2:08 PM EST Pt by accidentally deleted her breat pump email and was not 100 percent if it went thru insurance or not. documented in this encounter Plan of Treatment Upcoming Encounters Date Type Department Care Team (Late st Contact Info) Description 11/09/2024 2:00 PM EDT Imaging Radiology [address] [place] [address] 11/09/2024 3:00 PM EDT Office Visit Gynecology/Obstetrics [facility] [address] [place] [address] Ijeoma Mccurdy CRNP [address] [place] [address] 11/16/2024 2:00 PM EDT Imaging Radiology [address] [place] [address] 11/16/2024 3:00 PM EDT Office Visit Gynecology/Obstetrics [facility] [address] [place] [address] Ijeoma Mccurdy CRNP [address] [place] [address] 11/23/2024 2:00 PM EDT Imaging Radiology [address] [address] 11/23/2024 3:00 PM EDT Office Visit Gynecology/Obstetrics [facility] [address] [place] [address] Ijeoma Mccurdy CRNP [address] [place] [phone] Pending Results Name Type Priority Associated Diagnoses Date /Time GROUP B STREP CULTURE/PCR Lab Routine Supervision of high risk in third trimester 11/03/2024 2:37 PM EST Scheduled Orders Name Type Priority Associated Diagnoses Orde r Schedule GROUP B STREP CULTURE/PCR Lab Routine Supervision of high risk in third trimester Expected: 11/03/2024, Expires: 11/03/2025 Health Maintenance Due Date Last Done Comments Depression Monitoring 2005 Pneumococcal Vaccine: Pediatrics (0 to 5 Years) and At-Risk Patients (6 to 18 Years and 19+ Years) (2 of 2 - PCV) 05/06/2014 05/06/2013 Pap Smear 09/14/2015 09/14/2012 Cervical Cancer Screening 01/01/2024 HPV/Co-Test 01/01/2024 COVID-19 Vaccine ( - season) 2024 Influenza Vaccine (FLU shot) (#1) [...] Unspecified high-risk with 34 completed weeks gestation Supervision of high risk in third trimester- Primary Unspecified high-risk History of premature rupture of membranes (PPROM) History of IUFD Depression complicating , antepartum Mental disorders of mother, antepartum History of abnormal cervical Pap smear Personal history of other genital system and obstetric disorders Marijuana use during Tobacco use affecting , antepartum Diet controlled gestational diabetes mellitus (GDM) in third trimester documented in this encounter Additional Health Concerns Active Problems Noted Date Diagnosed Date OB Reminders 08/22/2024 documented as of this encounter
--- OUTSIDE RECORDS SUMMARY | 2024-11-05 12:03 | External Medical Summary | Summary of Care ---
Author Name Unknown Organization [facility] Address [address] [place] [address] Phone [phone] Care Team Providers Care Ethanol Quality Leader Name Role Phone Unavailable Primary Care Provider Unavailabl e Reason for Visit * Reason Comments Return Visit Encounter Details Date Type Department Care Team (Latest Contact Info) Description 10/26/2024 3:00 PM EST Office Visit Gynecology/Obstetric s Kyle Mariano [address] [place] [address] Ijeoma Mccurdy CRNP [address] [place] [phone] Depression complicating , antepartum*; Supervision of high risk in third trimester; History of abnormal cervical Pap smear; Other specified attention deficit hyperactivity disorder (ADHD); Marijuana use during ; Tobacco use affecting , antepartum; History of premature rupture of membranes (PPROM); History of IUFD; Diet controlled gestational diabetes mellitus (GDM) in third trimester Allergies Active Allergy Reactions Criticality Noted Date Comments Ciprofloxacin Nausea/vomiting Low 10/21/2012 documented as of this encounter (statuses as of 10/26/2024) Medications 27-1 MG Oral Tablet Take 1 Tablet by mouth every evening. Active Nicoderm CQ 7 MG/24HR Transdermal Patch [address] 1 Patch topically on the skin daily. Active Methylphenidate HCl 5 MG Oral Tablet (Ritalin) 2 Tablets. 4 Active Magnesium 250 MG Oral Capsule Take by mouth. Ac tive Famotidine 40 MG Oral Tablet (Pepcid) Take 1 Tablet by mouth in the morning. Active Omeprazole 20 MG Oral Capsule Delayed Release (PriLOSEC) Take 1 Capsule by mouth in the morning. 30 Capsule 1 5 Active [employer] Flex System w/Device KitIndications:G estational diabetes mellitus (GDM), antepartum, gestational diabetes method of control unspecified Use to test blood sugars 4 times daily (fasting, 1 hour after breakfast, lunch, and dinner) 1 Kit 5 Active [employer] In Vitro Strip (Glucose Blood)Indication s:Gestational diabetes mellitus (GDM), antepartum, gestational diabetes method of control unspecified Use to test blood sugars 4 times daily (fasting, 1 hour after breakfast, lunch, and dinner) 125 Strip 6 5 Active [employer] Delica Lancets 30GIndications:G estational diabetes mellitus (GDM), antepartum, gestational diabetes method of control unspecified Use to test blood sugars 4 times daily (fasting, 1 hour after breakfast, lunch, and dinner) 200 Each 6 5 Active Breast Pump Z39.1, double electric pump 1 Each 5 Active documented as of this encounter (statuses as of 10/26/2024) Active Problems Problem Noted Date Diagnosed Date with 34 completed weeks gestation 10/02 Diet controlled gestational diabetes mellitus (GDM) in third trimester 10/19/2024 Overview (10/26/2024): Diagnosed at 34 weeks Nutrition consult ordered [...] RPM reviewed; just enrolled yesterday, readings stable Assessment & Plan (10/20/2024 3:03 PM EST): [...] Recommend nutrition consult with RDN (Registered Dietitian Carder Blankets). 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 [...] ultrasound to ensure accurate dating of . [facility] ultrasound for anatomy at 19-20 weeks gestation. [...] delivering provider secondary to severe anxiety, recommend Label Machine Operator counseling to include the potential risks of [...] as of this encounter (statuses as of 10/26/2024) Resolved Problems Problem Noted Date Diagnosed Date Resolved Date with 22 completed weeks gestation 07/29/2024 07/29/2024 cardiac anomaly compli cating , antepartum 07/18/2024 09/27/2024 Overview (07/29/2024): See [facility] ultrasound report from 07/18/2024 Genetics counseling completed [...] as of this encounter (statuses as of 10/26/2024) Immunizations Name Administration Dates Next Due H1N1 [...] have money to get more. Patient declined Edwards Depression Scale Answer Date Recorded Edwards Depression Scale Total 11 06/17/2024 The thought [...] Sign Reading Time Taken Comments Blood Pressure 122/62 10/26/2024 2:50 PM EST Pulse - - Temperature - - Respiratory Rate - - Oxygen Saturation - - Inhaled Oxygen Concentration - - Weight 77 kg (169 lb 12.8 oz) 10/26/2024 2:50 PM EST Height 165.1 cm (5' 5") 10/26/2024 2:50 PM EST Body Mass Index 28.26 10/26/2024 2:50 PM EST documented in this encounter Progress Notes * Ijeoma Mccurdy CRNP - 10/26/2024 3:09 PM EST 35w2d Pt requesting cervical check d/t history of IUFD at 33w with cord prolapse. Cervix closed. Pt thankful. BPP prior to appt, 02/05. NST completed. Struggling with fasting blood sugars, as she is not able to go 8 hours without eating. Getting up between 4-6am to eat, then going back to bed. Suggested she check her sugar before that snack, and record how many hours she had been fasting. Baby is active. No contractions, no bleeding. ASSESSMENT assessment with Non-stress Test completed on 10/26/2024 at 35.2weeks gestation for indication of BPP 6, history of IUFD. heart baseline: 130 bpm Variability: Moderate Decelerations: absent Accelerations: present Contractions: None NST start time: 1509 NST stop time: 1531 NST strip reviewed, interpreted, and approved by OB provider, GAYLE Hawkins . NST strip stored in clinic storage file Detailer Furniture Documentation Provider requested computer hardware engineer. Name of computer hardware engineer: GAYLE Lucio * Josette Chapa LPN - 10/26/2024 2:52 PM EST 35w 2d No concerns Wants to make sure she's not dialating d/t losing first at 33wks Requesting exam documented in this encounter Plan of Treatment Upcoming Encounters Date Type Department Care Team (Late st Contact Info) Description 10/27/2024 2:45 PM EST Imaging Radiology [address] [place] [address] 11/01/2024 3:00 PM EST Telemedicine Virtual, Nutrition Services [address] [place] [address] Sunita Gray, RDN [address] [place] [address] [place] [phone] 11/03/2024 2:15 PM EST Office [facility] [place] [address] Ijeoma Mccurdy CRNP [address] [place] [phone] 11/03/2024 2:30 PM EST Imaging Maternal Medicine Imaging, [facility]illermo Mariano [address] [place] [phone] 11/09/2024 2:00 PM EDT Imaging Radiology [address] [place] [address] 11/09/2024 3:00 PM EDT Office Visit Gynecology/Obstetrics [facility] [address] [place] [address] Ijeoma Mccurdy CRNP [address] [place] [address] 11/16/2024 2:00 PM EDT Imaging Radiology [address] [place] [address] 11/16/2024 3:00 PM EDT Office Visit Gynecology/Obstetrics [facility] [address] [place] [address] Ijeoma Mccurdy CRNP [address] [place] [address] 11/23/2024 2:00 PM EDT Imaging Radiology [address] [place] [address] 11/23/2024 3:00 PM EDT Office Visit Gynecology/Obstetrics [facility] [address] [place] [address] Ijeoma Mccurdy CRNP [address] [place] [address] Health Maintenance Due Date Last Done Comments [...] antepartum- Primary Mental disorders of mother, antepartum Supervision of high risk in third trimester Unspecified high-risk History of abnormal cervical Pap smear Personal history of other genital system and obstetric disorders Other specified attention deficit hyperactivity disorder (ADHD) Marijuana use during Tobacco use affecting , antepartum History of premature rupture of membranes (PPROM) History of IUFD Diet controlled gestational diabetes mellitus (GDM) in third trimester documented in this encounter Additional Health Concerns Active Problems Noted Date Diagnosed Date OB Reminders 08/22/2024 documented as of this encounter
--- OUTSIDE RECORDS SUMMARY | 2024-11-05 12:03 | External Medical Summary | Summary of Care ---
Author Name Unknown Organization [facility] Address [address] [facility] [address] Phone [phone] Care Team Providers Care Rn Manager Name Role Phone Unavailable Primary Care Provider Unavailabl e Reason for Visit * Reason Comments Outpatient Testing Encounter Details Date Type Department Care Team (Late st Contact Info) Description 10/12/2024 11:30 AM EST Laboratory Laboratory [address] [place] [phone] [address] [place] [address] Elevated glucose tolerance test Allergies Active Allergy Reactions Criticality Noted Date Comments Ciprofloxacin Nausea/vomiting Low 10/21/2012 documented as of this encounter (statuses as of 10/12/2024) Medications 27-1 MG Oral Tablet Take 1 [...] the morning. 30 Capsule 1 5 Active documented as of this encounter (statuses as of 10/12/2024) Active Problems Problem Noted Date Diagnosed Date History of IUFD 09/30/2024 Overview (09/30/2024): 33 wks following PPROM and cord prolapse. 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 [facility] ultrasound for anatomy at 19-20 weeks [...] delivering provider secondary to severe anxiety, recommend Cashier Host/Hostess counseling to include the potential risks of [...] as of this encounter (statuses as of 10/12/2024) Resolved Problems Problem Noted Date Diagnosed Date Resolved Date with 22 completed weeks gestation 07/29/2024 07/29/2024 cardiac anomaly compli cating , antepartum 07/18/2024 09/27/2024 Overview (07/29/2024): See [facility] ultrasound report from 07/18/2024 Genetics counseling [...] as of this encounter (statuses as of 10/12/2024) Immunizations Name Administration Dates Next Due H1N1 [...] have money to get more. Patient declined [place] Depression Scale Answer Date Recorded [place] Depression Scale Total 11 06/17/2024 The thought [...] AM EDT documented as of this encounter Plan of Treatment Upcoming Encounters Date Type Department Care Team (Late st Contact Info) Description 10/13/2024 1:15 PM EST Imaging Radiology [facility] [address] [facility] [place] [phone] 10/13/2024 2:30 PM EST Imaging Maternal Medicine Imaging, [facility] [address] [facility] [place] [phone] 10/13/2024 2:30 PM EST Office Visit [facility], [facility] [address] [facility] [place] [address] Teresa Cantu, DO [address] [place] [address] 10/19/2024 2:00 PM EST Imaging Radiology [facility] [place] [address] [place], [place] [address] 10/26/2024 2:00 PM EST Imaging Radiology [facility] [place] [address] [place] [address] 10/26/2024 3:00 PM EST Office Visit Gynecology/Obstetrics [facility] [address] [place] [address] Ijeoma Mccurdy CRNP [address] [place] [address] 11/03/2024 2:15 PM EST Office Visit Gynecology/Obstetrics [facility] [address] [place] [address] Ijeoma Mccurdy CRNP [address] [place] [address] 11/03/2024 2:30 PM EST Imaging Maternal Medicine Imaging, [facility] [address] [place] [phone] 11/09/2024 2:00 PM EDT Imaging Radiology [address], [place] [address] [place] [address] 11/09/2024 3:00 PM EDT Office Visit Gynecology/Obstetrics [facility] [address] [place] [address] Ijeoma Mccurdy CRNP [address] [place] [address] 11/16/2024 2:00 PM EDT Imaging Radiology [address], [place] [address] [place] [address] 11/16/2024 3:00 PM EDT Office Visit Gynecology/Obstetrics [facility] [address] [place] [address] Ijeoma Mccurdy CRNP [address] [place] [phone] 11/23/2024 2:00 PM EDT Imaging Radiology [facility] [place] [address] [place] [address] 11/23/2024 3:00 PM EDT Office Visit Gynecology/Obstetrics [facility] [address] [place] [address] Ijeoma Mccurdy CRNP [address] [place] [phone] Pending Results Name Type Priority Associated Diagnoses Date /Time GESTATIONAL GLUCOSE TOLERANCE, 3 HOUR Lab Routine Elevated glucose tolerance test 10/12/2024 11:28 AM EST 100-G GESTATIONAL GLUCOSE, FASTING Lab Routine Elevated glucose tolerance test 10/12/2024 11:28 AM EST 100-G GESTATIONAL GLUCOSE, 1 HOUR Lab Routine Elevated glucose tolerance test 10/12/2024 12:30 PM EST 100-G GESTATIONAL GLUCOSE, 2 HOUR Lab Routine Elevated glucose tolerance test 10/12/2024 1:30 PM EST 100-G GESTATIONAL GLUCOSE, 3 HOUR Lab Routine Elevated glucose tolerance test 10/12/2024 2:27 PM EST Health Maintenance Due Date Last Done Comments Depression Monitoring 2005 Pneumococcal Vaccine: Pediat rics (0 to 5 Years) and At-Risk Patients (6 to 18 Years and 19+ Years) (2 of 2 - PCV) 05/06/2014 05/06/2013 Pap Smear 09/14/2015 09/14/2012 Cervical Cancer Screening 01/01/2024 HPV/Co-Test 01/01/2024 COVID-19 Vaccine (1 - 2023-2 5 season) 2024 Influenza Vaccine (FLU shot) (#1) 2024 011, 07/18/2002 DTap/Tdap Vaccines (9 - Td o r Tdap) 09/13/2034 09/13/2024, 11/07/2011, 04/28/2005, Additional history exists Hepatitis B Vaccine Completed 07/22/1994, 02/26/1994, 1993 HPV (Gardasil) Vaccine Completed 8, 04/03/2008, 01/31/2008 MENINGOCOCCAL (MENACTRA/MENVEO) Completed 2, 04/28/2005 Hepatitis C Screening Completed 03/05/2012 documented as of this encounter Goals Goal Patient Goal Type Associated Problems Recent Progress Patient-Stated? Author Reminders Care Plan OB Reminders No [place], Provider documented as of this encounter Medical [...] Unspecified high-risk with 22 completed weeks gestation Elevated glucose tolerance test Impaired glucose tolerance test documented in this encounter Additional Health Concerns Active Problems Noted Date Diagnosed Date OB Reminders 08/22/2024 documented as of this encounter
--- OUTSIDE RECORDS SUMMARY | 2024-11-05 12:03 | External Medical Summary ---
Author Name Unknown Address Unknown Organization [id number][place] [place] [address] [place] [address] Laboratory Report Ordering Provider Test Date Status NICOLLE MERCEDES 10/12/2024 14:27:24 Final Observation Date Value Abnormality Reference (Units ) Status Glucose [Mass/volume] in Serum or Plasma --3 hours post dose glucose 10/12/2024 14:27:24 139 70-139 (mg/dL) Final Performing Location [facility] [place] [address] [place] [address]
--- OUTSIDE RECORDS SUMMARY | 2024-11-05 12:03 | External Medical Summary ---
Author Name Unknown Address Unknown Organization [id number][place] [place] [address] [facility] [address] Laboratory Report Ordering Provider Test Date Status MAGONICOLLE 10/12/2024 11:28:35 Final Based on ACOG guideline, ges tational diabetes mellitus is diagnosed when any of the following is met:
Fasting is greater than or equal to 95 mg/dL
1 hour is greater than or equal to 180 mg/dL
2 hour is greater than or equal to 155 mg/dL
3 hour is greater than or equal to 140 mg/dL Observation Date Value Abnormality Reference (Units ) Status Glucose, fasting 10/12/2024 11:28:35 94 70- 94 (mg/dL) Final Performing Location [facility] - [address] [facility] [address]
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
--- OUTSIDE RECORDS SUMMARY | 2024-11-05 12:03 | External Medical Summary | Summary of Care ---
Author Name Unknown Organization [facility] Address [address] [place] [address] Phone [phone] Care Team Providers Care Erp Technical Lead Name Role Phone Unavailable Primary Care Provider Unavailabl e Reason for Visit * Reason Onset Date Comments Home Monitoring Orders Only 10/25/2024 Encounter Details Date Type Department Care Team (Late st Contact Info) Description 10/25/2024 Home Monitoring Talent Buyer Obstetrics Maternal Medicine, [place] [address] [place], [place] [id number] Angela Means CRNP [address] [place] [address] Diet controlled gestational diabetes mellitus (GDM) in third trimester* Allergies Active Allergy Reactions Criticality Noted Date Comments Ciprofloxacin Nausea/vomiting Low 10/21/2012 documented as of this encounter (statuses as of 10/25/2024) Medications 27-1 MG Oral Tablet Take 1 [...] the morning. 30 Capsule 1 5 Active Octoplus Verio Flex System w/Device KitIndications:G estational diabetes mellitus (GDM), antepartum, gestational diabetes method of control unspecified Use to test blood sugars 4 times daily (fasting, 1 hour after breakfast, lunch, and dinner) 1 Kit 5 Active Shop2io In Vitro Strip (Glucose Blood)Indication s:Gestational diabetes mellitus (GDM), antepartum, gestational diabetes method of control unspecified Use to test blood sugars 4 times daily (fasting, 1 hour after breakfast, lunch, and dinner) 125 Strip 6 5 Active Octoplus Delica Lancets 30GIndications:G estational diabetes mellitus (GDM), antepartum, gestational diabetes method of control unspecified Use to test blood sugars 4 times daily (fasting, 1 hour after breakfast, lunch, and dinner) 200 Each 6 5 Active Breast Pump Z39.1, double electric pump 1 Each 5 Active documented as of this encounter (statuses as of 10/25/2024) Active Problems Problem Noted Date Diagnosed Date [...] Recommend nutrition consult with RDN (Registered Dietitian Garbage Worker). 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 [facility] ultrasound for anatomy at 19-20 weeks [...] delivering provider secondary to severe anxiety, recommend Military Lawyer counseling to include the potential risks of [...] as of this encounter (statuses as of 10/25/2024) Resolved Problems Problem Noted Date Diagnosed Date Resolved Date with 22 completed weeks gestation 07/29/2024 07/29/2024 cardiac anomaly compli cating , antepartum 07/18/2024 09/27/2024 Overview (07/29/2024): See [facility] ultrasound report from 07/18/2024 Genetics counseling [...] as of this encounter (statuses as of 10/25/2024) Immunizations Name Administration Dates Next Due H1N1 [...] have money to get more. Patient declined [place] Depression Scale Answer Date Recorded [place] Depression Scale Total 11 06/17/2024 The thought [...] as of this encounter Progress Notes * Macey Sprague, Community Health Deck Mechanic - 10/25/2024 9:05 AM EST Patient has been successfully enrolled to the [id number] Diabetes Management in program. Standard alarm settings have been set as follows: Singular glucose level > 200 Singular glucose level < 60 Patient has been advised to take blood sugar four times a day (fasting upon waking, and one hour after each meal). Patient has been oriented to remote patient monitoring, assisted with initial device set-up, and provided with instruction and education regarding the program. Patient understands that this monitoring should not be used as a replacement for emergency and/or urgent care. If patient experiences any urgent symptoms, they are aware to call office/salon supervisor provider for additional instructions. In emergency situations, they will report directly to the ED for further evaluation. If you would like to customize the alert parameters and/or instructions for this patient, please let me know and we can have them changed. documented in this encounter Plan of Treatment Upcoming Encounters Date Type Department Care Team (Late st Contact Info) Description 10/26/2024 2:00 PM EST Imaging Radiology [facility] [address]nd [address] [place] [address] 10/26/2024 3:00 PM EST Office Visit Gynecology/Obstetrics [facility] [address] [facility] [place] [address] Ijeoma Mccurdy CRNP [address] [place] [address] 11/01/2024 3:00 PM EST Telemedicine Virtual, Nutrition Services [address] [place] [phone] Sunita Gray, RDN [address] [place] [address] 11/03/2024 2:15 PM EST Office Visit Gynecology/Obstetrics [facility] [address] [place] [address] Ijeoma Mccurdy CRNP [address] [place] [address] 11/03/2024 2:30 PM EST Imaging Maternal Medicine Imaging, [facility] [address] [place] [phone] 11/09/2024 2:00 PM EDT Imaging Radiology [address] [place] [address] 11/09/2024 3:00 PM EDT Office Visit Gynecology/Obstetrics [facility] [address] [place] [address] Ijeoma Mccurdy CRNP [address] [place] [address] 11/16/2024 2:00 PM EDT Imaging Radiology [address] [place] [address] 11/16/2024 3:00 PM EDT Office Visit Gynecology/Obstetrics [facility] [address] [place] [address] Ijeoma Mccurdy CRNP [address] [place] [address] 11/23/2024 2:00 PM EDT Imaging Radiology [facility] 2nd [facility] [place] [address] [place] [address] 11/23/2024 3:00 PM EDT Office Visit Gynecology/Obstetrics [facility] [address] [place] [address] Ijeoma Mccurdy CRNP [address] [place] [address] Health Maintenance Due Date Last Done Comments Depression Monitoring 2005 Pneumococcal Vaccine: Pediatrics (0 to 5 Years) and At-Risk Patients (6 to 18 Years and 19+ Years) (2 of 2 - PCV) 05/06/2014 05/06/2013 Pap Smear 09/14/2015 09/14/2012 Cervical Cancer Screening 01/01/2024 HPV/Co-Test 01/01/2024 COVID-19 Vaccine (1 - season) 2024 Influenza Vaccine (FLU shot) [...] diabetes mellitus (GDM) in third trimester- Primary documented in this encounter Additional Health Concerns Active Problems Noted Date Diagnosed Date OB Reminders 08/22/2024 documented as of this encounter
--- OUTSIDE RECORDS SUMMARY | 2024-11-05 12:03 | External Medical Summary | Summary of Care ---
Author Name Unknown Organization [facility] Address [address] [place] [address] Phone [phone] Care Team Providers Care Belt Measurer Name Role Phone Unavailable Primary Care Provider Unavailabl e Encounter Details Date Type Department Care Team (Late st Contact Info) Description 10/13/2024 2:30 PM EST Office Visit Manager Basketball Obstetrics Maternal Medicine, [address] [place] [address] Teresa Cantu, DO [address] [place] [address] History of IUFD*; Ultrasound for screening for growth restriction; 33 weeks gestation of Allergies Active Allergy Reactions [...] 33 wks following PPROM and cord prolapse. [facility] recommends twice weekly NSTs at 31 weeks, delivery between 39w0d and 39w6d - can consider earlier for significant maternal anxiety. Pt requests weekly BPPs due to transportation concerns. 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 [facility] ultrasound for anatomy at 19-20 weeks gestation. [...] delivering provider secondary to severe anxiety, recommend Dimensional Engineer counseling to include the potential risks [...] antepartum 07/18/2024 09/27/2024 Overview (07/29/2024): See [facility] ultrasound report from 07/18/2024 Genetics counseling completed [...] have money to get more. Patient declined [place] Depression Scale Answer Date Recorded [place] Depression Scale Total 11 06/17/2024 The thought [...] of this encounter Progress Notes * Teresa Cantu, DO - 10/13/2024 4:17 PM EST Sally presented today at 33w3d for an ultrasound for the following indications: History of IUFD Ultrasound for screening for growth restriction 33 weeks gestation of Ultrasound summary: Patient presented at 33w 3d for growth assessment. Normal growth with EFW 1985 g at 18%ile. Normal SHAD at 11.6 cm. Cephalic presentation. BPP 04/07. I reviewed [...] call with any questions. Teresa Cantu DO 10/13/2024 4:17 PM documented in this encounter Plan of Treatment Upcoming Encounters Date Type Department Care Team (Late st Contact Info) Description 10/19/2024 2:00 PM EST Imaging Radiology [address] [place] [place] [address] 10/26/2024 2:00 PM EST Imaging Radiology [address] [place] [place] [address] 10/26/2024 3:00 PM EST Office Visit Gynecology/Obstetrics [address] [place] [address] Ijeoma Mccurdy CRNP [address] [place] [address] 11/01/2024 3:00 PM EST Telemedicine Virtual, Nutrition Services [address] [place] [address] Sunita Gray, RDN [address] [place] [address] 11/03/2024 2:15 PM EST Office Visit Gynecology/Obstetrics [facility] [address] [place] [address] Ijeoma Mccurdy CRNP [address] [place] [address] 11/03/2024 2:30 PM EST Imaging Maternal Medicine Imaging, [address] [place] [id number] 11/09/2024 2:00 PM EDT Imaging Radiology [place] [address] [address] [place], [place] [address] 11/09/2024 3:00 PM EDT Office Visit Gynecology/Obstetrics [facility] [address] [place], [place] [address] Ijeoma Mccurdy CRNP [address] [place] [address] 11/16/2024 2:00 PM EDT Imaging Radiology [address] [place] [address] 11/16/2024 3:00 PM EDT Office Visit Gynecology/Obstetrics [facility] [address] [place] [address] Ijeoma Mccurdy CRNP [address] [place] [address] 11/23/2024 2:00 PM EDT Imaging Radiology [address] [place] [address] 11/23/2024 3:00 PM EDT Office Visit Gynecology/Obstetrics [facility] [address] [place] [address] Ijeoma Mccurdy CRNP [address] [place] [address] Health Maintenance Due Date Last Done Comments [...] Unspecified high-risk with 22 completed weeks gestation History of IUFD- Primary Ultrasound for screening for growth restriction screening for growth retardation using ultrasonics 33 weeks gestation of state, incidental documented in this encounter Additional Health Concerns Active Problems Noted Date Diagnosed Date OB Reminders 08/22/2024 documented as of this encounter
[2024-11-05 12:31] LABS: Creatinine Urine Random 25.9 mg/dl; Total Protein Urine Random < 4.0 mg/dl (0-11.9)
[2024-11-05 12:49] LABS: Hematocrit (blood only) 38.3 % (37.0-47.0); Hemoglobin 13.1 g/dl (12.0-16.0); Mean Corpuscular Hemoglobin 31.6 pg (25.0-34.0); Mean Corpuscular Hgb Conc 34.2 g/dL (32.0-36.0); Mean Corpuscular Volume 92.3 fL (80.0-100.0); Mean Platelet Volume 12.1 fL (9.4-12.4); Platelet Count 159 K/uL (130-400); RDW Coefficient of Variation 12.7 % (11.5-14.5); RDW Standard Deviation 42.6 fL (36.4-46.3); Red Blood Count 4.15 M/uL (4.20-5.40); White Blood Count 10.42 K/ul (4.8-10.8)
[2024-11-05 13:07] LABS: Albumin Globulin Ratio 1.1 (0.9-2); Albumin Level 3.1 gm/dl (3.4-5.0); BUN Creatinine Ratio 15.8 (10-20); Bilirubin,Total 0.3 mg/dl (0.2-1.0); Creatinine Clr Calc Pharmacy 151.9 ml/min; Globulin 2.8 gm/dl (2.5-4.0); Potassium 3.6 mmol/L (3.5-5.1); Total Protein 5.9 gm/dl (6.0-8.3)
[2024-11-05 13:52] VITALS: BP 123/63; PULSE 75
== END 2024-11-05 14:25 | disposition home or self-care (01) | DRG 833 ==
LOC: OPB 10:05 → 4S1 10:11 → INTOOBSV 12:02

== ENCOUNTER 2024-11-17 23:29 | Inpatient (IN) ==
[2024-11-18] MEDS ORDERED: OXYTOCIN 30 UNITS/NSS 30 UNITS/500 ML BAG IV PRN ×2 (00:18→08:38)
[2024-11-18] MEDS ORDERED: LIDOCAINE 1% LOCAL 20 ML VIAL INFIL PRN (00:18)
[2024-11-18] MEDS: LACTATED RINGER'S 1,000 ML IV PRN (00:40)
[2024-11-18 00:55] LABS: Hematocrit (blood only) 36.2 % (37.0-47.0); Hemoglobin 12.4 g/dl (12.0-16.0); Mean Corpuscular Hemoglobin 31.8 pg (25.0-34.0); Mean Corpuscular Hgb Conc 34.3 g/dL (32.0-36.0); Mean Corpuscular Volume 92.8 fL (80.0-100.0); Mean Platelet Volume 11.9 fL (9.4-12.4); Platelet Count 176 K/uL (130-400); RDW Coefficient of Variation 12.5 % (11.5-14.5); RDW Standard Deviation 42.6 fL (36.4-46.3); White Blood Count 11.19 K/ul (4.8-10.8)
[2024-11-18 01:12] LABS: Albumin Globulin Ratio 1.2 (0.9-2); Albumin Level 3.1 gm/dl (3.4-5.0); BUN Creatinine Ratio 16.9 (10-20); Bilirubin,Total 0.2 mg/dl (0.2-1.0); Calcium 8.9 mg/dl (8.6-10.3); Creatinine Clr Calc Pharmacy 111.8 ml/min; Globulin 2.5 gm/dl (2.5-4.0); Potassium 3.9 mmol/L (3.5-5.1); Total Protein 5.6 gm/dl (6.0-8.3)
--- NOTE | 2024-11-18 01:13 | History & Physical Report ---
Date of Service November 18, 2024 Assessment & Plan (1) Vaginal discharge during in first trimester: (2) Active labor at term: Plan: 28-year-old , at 38 weeks and 4 days of gestation presenting today with questionable leaking on anticoagulants, not confirmed on the pelvic exam, active labor per cervical exam with a bulging bag, Vital signs stable afebrile, heart rate reassuring, GBS negative, History of IUFD, Plan to admit, monitor, labs, discussed options of expectant management versus augmentation with oxytocin and AROM, patient is nervous about the due to her prior history and prefers to be delivered sooner than later, All questions were answered. (3) History of IUFD: (4) Gestational diabetes mellitus (GDM): (5) ADHD: (6) Depression, unspecified: (7) Marijuana use: Plan: Patient agrees for urine drug screen Admission and Anticipated Discharge Date Admission Date: November 18, 2024 History of Present Illness Primary Care Provider: NO PCP Patient is a 28-year-old at 38 weeks and 4 days of gestation who has been leaking fluid since 2 PM yesterday. She soaked her pants about palm size around 2 PM and then she bent over leaked again around 5 PM about the same size. She states she has been leaking small amounts since then. she has been feeling irregular uterine contractions but they are not painful. She denies vaginal bleeding. She reports good movements. She presented to [facility] where her cervix was checked by her ER team and she was told that she was 5 cm dilated and she should come to here. Her has been complicated by, 1. History of IUFD at 33 weeks, on July 2021, patient admits that she was leaking for a while and then she had cord prolapse upon arrival to the hospital when the baby was already passed. She has delivered vaginally. 2. History of depression, ADHD, on Ritalin, 3. Marijuana use during , she has seen a doctor for medical marijuana card but it was declined for her, she used marijuana about a month ago. 4. GDM A1, 5. 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 Allergies Allergy/AdvReac Type Severity Reaction Status Date / Time ciprofloxacin [From Cipro] Allergy Vomiting Verified 11/18/24 00:05 Home Medications Medication Instructions Recorded Confirmed Type vits 75-iron 28 mg-folic pkg PO 09/27/24 10/10/24 History acid 800 mcg-omega-3 oral combo pack (One A Day Women's DHA) magnesium citrate,mag oxide 250 mg 250 mg PO DAILY #1 cap 10/10/24 11/18/24 Rx capsule methylphenidate HCl 5 mg tablet 10 mg PO BID 10/10/24 11/18/24 History (Ritalin) Patient History Medical History Diabetes in H/O multiple concussions Malignant neoplasm of right ovary H/O urinary tract infection Surgical History S/P removal of right ovary H/O tooth extraction Family History Father Hypertension Diabetes Heart disease Hyperlipidemia Mental health disorder Grandfather (Paternal) Hypertension Heart disease Grandfather (Maternal) Diabetes Heart disease Cancer Alzheimer disease Grandmother (Paternal) Diabetes Cancer Mental health disorder Brother Heart disease Mother Mental health disorder Social History (Updated 09/27/24 @ 08:49 by Shannon Purcell LPN) Smoking Status: Current every day smoker Tobacco Type: Cigarettes Cigarettes Per Day: 1; Second Hand Exposure: Yes; Do You Dip or Chew Tobacco: No; Hx Alcohol Use: No Hx Substance Use: Yes Prescribed Medications: Marijuana Last Used Substance Other:: over a month ago per patient Preferred Language: Hungarian Communication Ability: Effective Photographic Double Required: No Beliefs That Will Affect Care: None marital status: Single Current Living Situation: Significant Other current occupational status: employed Other Information That Helps Us Care for You: No Feels Safe at Home: Yes Safety Concerns: Feels Safe At This Time Assistive Devices: Glasses TRACK ANNOUNCER History No history of chlamydia, gonorrhea, herpes history of HPV, abnormal Pap smear Review of Systems as per Subjective / HPI Physical Exam Gastrointestinal (Abdomen): normal bowel sounds, soft, nontender, no hepatosplenomegaly Genitourinary: normal external appearance Speculum/Bimanual Exam: + a bnormal cervical discharge ( white creamy abundant discharge on the fornix, no clear leaking seen) OB Exam Abdomen: + vertex ( confirmed by ultrasound) Manual OB Exam: + cervical dilation 5 cm, + cervical effacement 80% and + station -1 ( bulging bag) OB Exam Monitor Tracing: + external uterine monitor used and + category I AmniSure negative, nitrazine positive, no ferning on the slide, bedside ultrasound revealed single IUP vertex presentation, SHAD is 14.4 cm. Results & Data Vital Signs (Past 12 Hours) Vital Signs Temp Pulse Resp BP 11/18/24 00:22 36.9 C 84 18 140/82 11/17/24 23:45 18 11/17/24 23:45 36.9 C 18 11/17/24 23:44 84 140/82 (4) Gestational diabetes mellitus (GDM) Gestational diabetes mellitus control: diet-controlled Trimester: third trimester Qualified Code(s): O24.410 - Gestational diabetes mellitus in , diet controlled (5) ADHD Attention deficit-hyperactivity disorder type: unspecified Qualified Code(s): F90.9 - Attention-deficit hyperactivity disorder, unspecified type (6) Depression, unspecified Depression Type: other depression Qualified Code(s): F32.89 - Other specified depressive episodes
[2024-11-18 01:29] LABS: Amphetamines+Metham, Urine Neg (Neg); Barbiturates, Urine Neg (Neg); Benzodiazepine, Urine Neg (Neg); Cocaine, Urine Neg (Neg); Fentanyl, Urine Neg (Neg); MDMA (Ecstacy), Urine Neg (Neg); Marijuana, Urine Neg (Neg); Methadone, Urine Neg (Neg); Opiate, Urine Neg (Neg); Phencyclidine, Urine Neg (Neg)
[2024-11-18] MEDS ORDERED: NALOXONE HCL 0.4 MG/1 ML VIAL/CARP IV PRN (01:36)
[2024-11-18] MEDS ORDERED: ROPIVACAINE 0.5% PF 5 MG/ML 20 ML VIAL EPI PRN (01:36)
[2024-11-18] MEDS ORDERED: LIDOCAINE 2% MPF LOCAL 5 ML VIAL EPI PRN (01:36)
[2024-11-18] MEDS ORDERED: fentaNYL citrate PF 100 MCG/2 ML VIAL EPI PRN (01:36)
[2024-11-18] MEDS ORDERED: fentANYL 2 MCG/ML BUPIVacaine 0.125%-NSS 100ML BAG EPI PRN (01:36)
[2024-11-18] MEDS ORDERED: NALOXONE HCL 1 MG in SODIUM CHLORIDE 0.9% 1,000 ML IV PRN (01:36)
[2024-11-18] MEDS ORDERED: NALBUPHINE HCL INJ 10 MG/ML AMP IV PRN (01:36)
[2024-11-18] MEDS ORDERED: ePHEDrine sulfate 50 MG/ML AMP IV PRN (01:36)
[2024-11-18] MEDS ORDERED: BUPIVACAINE 0.25% PF 30 ML VIAL EPI PRN (01:36)
[2024-11-18] MEDS ORDERED: SODIUM CHLORIDE 0.9% PF INJ 10 ML VIAL EPI PRN (01:36)
--- NOTE | 2024-11-18 01:36 | Anesthesiology Consultation ---
Date of Service November 18, 2024 Assessment & Plan (1) Encounter for pre-operative examination: Chart Review Chart Review: Patient NOT seen in Pre Admission Testing and Acceptable Risk for Labor Epidural Consults Requested none History Height/Weight Height: 5 ft 5 in Weight: 80.286 kg Allergies Allergy/AdvReac Type Severity Reaction Status Date / Time ciprofloxacin [From Cipro] Allergy Vomiting Verified 11/18/24 00:05 Medications Home Medications Medication Instructions Recorded Confirmed Last Taken vits 75-iron 28 mg-folic pkg PO 09/27/24 10/10/24 11/17/24 08:00 acid 800 mcg-omega-3 oral combo pack (One A Day Women's DHA) magnesium citrate,mag oxide 250 mg 250 mg PO DAILY #1 cap 10/10/24 11/18/24 11/17/24 20:00 capsule methylphenidate HCl 5 mg tablet 10 mg PO BID 10/10/24 11/18/24 11/17/24 08:00 (Ritalin) Active Medications Generic Name Dose Route Start Last Admin Trade Name Freq PRN Reason Stop Dose Admin Lactated Ringer's 1,000 mls @ 125 mls/hr 11/18/24 00:18 11/18/24 01:10 Lr IV 11/19/24 00:17 125 mls/hr .Q8H PRN Infusion L&D Protocol Protocol Past Medical History Medical History Diabetes in H/O multiple concussions Malignant neoplasm of right ovary H/O urinary tract infection Past Family History Family History Father Hypertension Diabetes Heart disease Hyperlipidemia Mental health disorder Grandfather (Paternal) Hypertension Heart disease Grandfather (Maternal) Diabetes Heart disease Cancer Alzheimer disease Grandmother (Paternal) Diabetes Cancer Mental health disorder Brother Heart disease Mother Mental health disorder Past Surgical History Surgical History S/P removal of right ovary H/O tooth extraction Social History Smoking Status: Current every day smoker Smoking cigarettes per day: 1 Do You Dip or Chew Tobacco: No Hx Alcohol Use: No Hx Substance Use: Yes substance use type: marijuana Last Used Substance Other:: over a month ago per patient Physical Exam Vital Signs Last Vital Signs Temp 98.4 F 11/18/24 00:22 Pulse 84 11/18/24 00:22 Resp 18 11/18/24 00:22 BP 140/82 11/18/24 00:22 Testing Laboratory Results 11/18/24 00:33 11/18/24 00:33
[2024-11-18 01:41] LABS: Treponema pallidum RflxConfirm Negative (Negative)
[2024-11-18 01:58] LABS: HIV 4th Gen(HIV 1,2 AB+p24 Ag Negative (Negative)
[2024-11-18] MEDS: fentaNYL citrate PF 100 MCG/2 ML VIAL ONE (02:00)
[2024-11-18] MEDS: LIDOCAINE 2%/EPINEPHRINE 1:200,000 20 ML PF ONE (02:00)
[2024-11-18] MEDS: BUPIVACAINE 0.25% PF 30 ML VIAL ONE (02:01)
[2024-11-18] MEDS: fentANYL 2 MCG/ML BUPIVacaine 0.125%-NSS 100ML BAG ONE (02:02)
[2024-11-18 02:05] LABS: Hep B Surface Ag with confirm Negative (Negative)
[2024-11-18] MEDS: SODIUM CHLORIDE 0.9% PF INJ 10 ML VIAL ONE (02:21)
--- NOTE | 2024-11-18 02:37 | Obstetrical Progress Note ---
Date of Service November 18, 2024 Assessment & Plan Admission and Anticipated Discharge Date Admission Date: November 18, 2024 Subjective Patient has received epidural for pain She desires AROM bt hold on for Oxytocin for now FHR categ I VE; 5/ 70%/ -2, large bulging bag, AROM'ed clear fluid Continue to monitor closely Results & Data Vital Signs (Past 12 Hours) Vital Signs Temp Pulse Resp BP Pulse Ox 11/18/24 02:34 75 116/61 11/18/24 02:32 83 98 11/18/24 02:27 106 H 97 11/18/24 02:24 71 115/56 L 11/18/24 02:22 81 97 11/18/24 02:19 85 123/60 11/18/24 02:17 82 98 11/18/24 02:14 77 119/58 L 11/18/24 02:12 76 97 11/18/24 02:09 78 135/69 11/18/24 02:07 81 98 11/18/24 02:03 83 133/68 11/18/24 02:02 84 97 11/18/24 02:01 88 139/70 11/18/24 01:59 81 138/65 11/18/24 01:57 88 99 11/18/24 01:52 85 98 11/18/24 01:47 84 99 11/18/24 00:22 36.9 C 84 18 140/82 11/17/24 23:45 18 11/17/24 23:45 36.9 C 18 11/17/24 23:44 84 140/82
[2024-11-18] MEDS: OXYTOCIN 30 UNITS/NSS 30 UNITS/500 ML BAG IV PRN (04:32)
[2024-11-18] MEDS: diphenhydrAMINE 50 MG/ML VIAL IV PRN (04:34)
[2024-11-18] MEDS: CALCIUM CARBONATE 500 MG CHEWABLE TAB PO PRN (04:38)
[2024-11-18] MEDS: ePHEDrine sulfate 50 MG/ML AMP ONE (04:49)
[2024-11-18 05:10] LABS: Rubella IgG Ab Immune (Immune); Rubella IgG Qnt 22.9 IU/mL
--- OUTSIDE RECORDS SUMMARY | 2024-11-18 07:06 | External Medical Summary ---
Author Name Unknown Address Unknown Organization [facility] [place] [address] [place] [address] Laboratory Report Ordering Provider Test Date Status LISSETTE ZENG 11/16/2024 15:13:00 Final Observation Date Value Abnormality Reference (Units ) Status Color of Urine by Auto 11/16/2024 15:13:00 Yellow Light Yellow, Yellow Final Clarity, Urine 11/16/2024 15:13:00 Clear Clear Final Glucose [Mass/volume] in Urine by Automated test strip 11/16/2024 15:13:00 Negative Negative (mg/dL) Final Bilirubin.total [Presence] in Urine by Automated test strip 11/16/2024 15:13:00 Negative Negative Final Ketones [Mass/volume] in Urine by Automated test strip 11/16/2024 15:13:00 Negative Negative (mg/dL) Final Specific gravity, Urine 11/16/2024 15:13:00 1.010 1.003-1.030 Final Hemoglobin [Presence] in Urine by Automated test strip 11/16/2024 15:13:00 Negative Negative Final pH, Urine 11/16/2024 15:13:00 6.5 5.0, 5.5, 6.0, 6.5, 7.0, 7.5 (units) Final Protein [Mass/volume] in Urine by Automated test strip 11/16/2024 15:13:00 Negative Negative (mg/dL) Final Urobilinogen, Urine 11/16/2024 15:13:00 0.2 0.2, 1.0 (mg/dL) Final Nitrite [Presence] in Urine by Automated test strip 11/16/2024 15:13:00 Negative Negative Final Leukocyte esterase [Presence] in Urine by Automated test strip 11/16/2024 15:13:00 Negative Negative Final Performing Location [facility] [address] [place] [id number]
--- OUTSIDE RECORDS SUMMARY | 2024-11-18 07:06 | External Medical Summary | Summary of Care ---
Author Name Unknown Organization [facility] Address [address] [place] [address] Phone [phone] Care Team Providers Care Health Services Administrator Name Role Phone Unavailable Primary Care Provider Unavailabl e Reason for Visit * Reason Comments Return Visit Non Stress Test Encounter Details Date Type Department Care Team (Latest Contact Info) Description 11/16/2024 3:00 PM EDT Office Visit Gynecology/Obstetric s Kyle Mariano [address] [place] [address] Ijeoma Mccurdy CRNP [address] [place] [phone] Supervision of high risk in third trimester*; Depression complicating , antepartum; History of abnormal cervical Pap smear; Other specified attention deficit hyperactivity disorder (ADHD); Marijuana use during ; Tobacco use affecting , antepartum; History of premature rupture of membranes (PPROM); History of IUFD; Diet controlled gestational diabetes mellitus (GDM) in third trimester Allergies Active Allergy Reactions Criticality Noted Date Comments Ciprofloxacin Nausea/vomiting Low 10/21/2012 documented as of this encounter (statuses as of 11/16/2024) Medications 27-1 MG Oral Tablet Take 1 Tablet by mouth every evening. Active Nicoderm CQ 7 MG/24HR Transdermal Patch [address] 1 Patch topically on the skin daily. 08/19/202 4 Active Methylphenidate HCl 5 MG Oral Tablet (Ritalin) 2 Tablets. 4 Active Magnesium 250 MG Oral Capsule Take by mouth. Ac tive Famotidine 40 MG Oral Tablet (Pepcid) Take 1 Tablet by mouth in the morning. Active Omeprazole 20 MG Oral Capsule Delayed Release (PriLOSEC) Take 1 Capsule by mouth in the morning. 30 Capsule 1 5 Active komootio Flex System w/Device KitIndications:G estational diabetes mellitus (GDM), antepartum, gestational diabetes method of control unspecified Use to test blood sugars 4 times daily (fasting, 1 hour after breakfast, lunch, and dinner) 1 Kit 5 Active [employer] In Vitro Strip (Glucose Blood)Indication s:Gestational diabetes mellitus (GDM), antepartum, gestational diabetes method of control unspecified Use to test blood sugars 4 times daily (fasting, 1 hour after breakfast, lunch, and dinner) 125 Strip 6 5 Active [place] Secure Delica Lancets 30GIndications:G estational diabetes mellitus (GDM), antepartum, gestational diabetes method of control unspecified Use to test blood sugars 4 times daily (fasting, 1 hour after breakfast, lunch, and dinner) 200 Each 6 5 Active Breast Pump Dispense double electric breast pump. Dx:Z39.1 1 Each 5 Active documented as of this encounter (statuses as of 11/16/2024) Active Problems Problem Noted Date Diagnosed Date with 34 completed weeks gestation 10/02 Diet controlled gestational diabetes mellitus (GDM) in third trimester 10/19/2024 Overview (11/14/2024): Diagnosed at 34 weeks Nutrition consult ordered [...] RPM reviewed; just enrolled yesterday, readings stable 10/31/[id number] missed readings. Only one fasting blood sugars reported in 6 days. Reported values all within normal limits with exception of one post prandial dinner reading = 143. Sent message to be consistent with testing four times daily and reporting. 11/07/[id number]-bab reporting. Sent message via Current [facility] to update values from past week. Sent message to patient and [facility] to schedule patient for follow up [facility] appointment. 11/14/[id number]-hfilueck one fasting blood sugar and and nine post prandial values (stable). Sent message via [facility] [place] asking patient to be consistent with testing four times daily and report. Assessment & Plan (10/20/2024 3:03 PM EST): [...] Recommend nutrition consult with RDN (Registered Dietitian Therapeutic Support Staff). Lifestyle changes are also indicated including optimizing [...] 33 wks following PPROM and cord prolapse. 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 [facility] ultrasound for anatomy at 19-20 weeks [...] delivering provider secondary to severe anxiety, recommend [employer] Consultant counseling to include the potential risks of [...] as of this encounter (statuses as of 11/16/2024) Resolved Problems Problem Noted Date Diagnosed Date Resolved Date with 22 completed weeks gestation 07/29/2024 07/29/2024 cardiac anomaly compli cating , antepartum 07/18/2024 09/27/2024 Overview (07/29/2024): See [facility] ultrasound report from 07/18/2024 Genetics counseling [...] as of this encounter (statuses as of 11/16/2024) Immunizations Name Administration Dates Next Due H1N1 [...] Date Smoking Tobacco: Every Day Cigarettes 1 14.9 Started: 2009 Smokeless Tobacco: Never Comments:age 14 [...] have money to get more. Patient declined [place] Depression Scale Answer Date Recorded [place] Depression Scale Total 11 06/17/2024 The thought [...] Sign Reading Time Taken Comments Blood Pressure 128/84 11/16/2024 2:37 PM EDT Pulse - - Temperature - - Respiratory Rate - - Oxygen Saturation - - Inhaled Oxygen Concentration - - Weight 80.5 kg (177 lb 6.4 oz) 11/16/2024 2:37 P M EDT Height - - Body Mass Index 29.52 10/26/2024 2:50 PM EST documented in this encounter Progress Notes * Ijeoma Mccurdy CRNP - 11/16/2024 3:04 PM EDT 38w2d BPP 6/8, no breathing. NST today, category 1. She is not able to return for any testing later this week, has no transportation. She is aware that she should have an NST and/or BPP tomorrow, but is not able to make this work. She will call with any changes in FM, contractions, bleeding, or any other concerns. Has been worried about preeclampsia. Had been checking blood pressure every 3 hours at home, and ithas been fine. During this time of concern, she has forgotten to check her blood sugars. Encouragedher to do her best to remember to check 4 times a day, and to send them to [facility]. Has IOL scheduled for one week from today. Aware to call morning of for arrival time. GAYLE Hawkins ASSESSMENT assessment with Non-stress Test completed on 11/16/2024 at 38.2weeks gestation for indication of BPP 6/8 heart baseline: 140 bpm Variability: Moderate Decelerations: absent Accelerations: present Contractions: None NST start time: 1514 (time not correct on EFM) NST stop time: 1540 NST strip reviewed, interpreted, and approved by OB provider, GAYLE Hawkins . NST strip stored in clinic storage file * Yasmin Harris CMA - 11/16/2024 2:37 PM EDT 38w2d BPP 6/8 today. NST being completed documented in this encounter Plan of Treatment Upcoming Encounters Date Type Department Care Team (Late st Contact Info) Description 11/23/2024 2:00 PM EDT Imaging Radiology [facility] [address] [place] [address] 11/23/2024 3:00 PM EDT Office Visit Gynecology/Obstetrics [facility] [address] [place] [address] Ijeoma Mccurdy CRNP [address] [place] [id number] Health Maintenance Due Date Last Done Comments [...] Not on filedocumented as of this encounter Procedures Procedure Name Priority Date/Time Associated Diagnosis Comments URINALYSIS OBSTETRICS, POINT OF CARE [place] 11/16/2024 3:13 PM EDT documented in this encounter Results * URINALYSIS OBSTETRICS, POINT OF CARE (11/16/2024 3:13 PM EDT) Color, Urine Yellow Light Yellow, Yellow 11/16/2024 3:16 PM EDT [facility] [place] [address] Clarity, Urine Clear Clear 11/16/2024 3:16 PM EDT [facility] [place] [address] Glucose, Urine Negative Negative mg/dL 11/16/2024 3:16 PM EDT [facility] [place] [address] Bilirubin, Urine Negative Negative 11/16/2024 3:16 PM EDT [facility] [place] [address] Ketone, Urine Negative Negative mg/dL 11/16/2024 3:16 PM EDT [facility] [place] [address] Specific [place], Urine 1.010 1.003 - 1.030 11/16/2024 3:16 PM EDT [facility] [place] [address] Blood, Urine Negative Negative 11/16/2024 3:16 PM EDT [facility] [place] [address] pH, Urine 6.5 5.0, 5.5, 6.0, 6.5, 7.0, 7.5 units 11/16/2024 3:16 PM EDT [facility] [place] [address] Protein, Urine Negative Negative mg/dL 11/16/2024 3:16 PM EDT [facility] [place] [address] Urobilinogen, Urine 0.2 0.2, 1.0 mg/dL 11/16/2024 3:16 PM EDT [facility] [place] [address] Nitrite, Urine Negative Negative 11/16/2024 3:16 PM EDT [facility] [place] [address] Esterase, Urine Negative Negative 11/16/2024 3:16 PM EDT [facility] [place] [address] Urine 11/16/2024 3:13 PM EDT 11/16/2024 3:15 PM EDT us Ijeoma GALARZANP LAB POINT OF CARE TE ST DOCKED DEVICE UNSOLICITED RESULTS Final Result [facility] [place] [address] [place] [id number] documented in this encounter Visit Diagnoses Diagnosis Tobacco use [...] risk in third trimester- Primary Unspecified high-risk Depression complicating , antepartum Mental disorders of [...]
--- OUTSIDE RECORDS SUMMARY | 2024-11-18 07:07 | External Medical Summary | Summary of Care ---
Author Name Unknown Organization [facility] Address [address] [place] [address] Phone [phone] Care Team Providers Care Fish Farmer Name Role Phone Unavailable Primary Care Provider Unavailabl e Reason for Visit * Reason Onset Date Comments Referral 10/14/2024 Encounter Details Date Type Department Care Team (Late st Contact Info) Description 10/14/2024 Telephone Brake Operator Heavy Duty Obstetrics Maternal Medicine, [place] [address] [place], [place] [id number] [place], Nurse Brake Operator Heavy Duty [facility] [address] [place] [address] Referral Allergies Active Allergy Reactions Criticality Noted Date Comments Ciprofloxacin Nausea/vomiting Low 10/21/2012 documented as of this encounter (statuses as of 11/08/2024) Medications 27-1 MG Oral Tablet Take 1 [...] lunch, and dinner) 1 Kit 5 Active [employer] In Vitro Strip (Glucose Blood)Indication s:Gestational diabetes mellitus (GDM), antepartum, gestational diabetes method of control unspecified Use to test blood sugars 4 times daily (fasting, 1 hour after breakfast, lunch, and dinner) 125 Strip 6 5 Active [employer] Delica Lancets 30GIndications:G estational diabetes mellitus (GDM), antepartum, gestational diabetes method of control unspecified Use to test blood sugars 4 times daily (fasting, 1 hour after breakfast, lunch, and dinner) 200 Each 6 5 Active documented as of this encounter (statuses as of 11/08/2024) Active Problems Problem Noted Date Diagnosed Date with 34 completed weeks gestation 10/02 Diet controlled gestational diabetes mellitus (GDM) in third trimester 10/19/2024 Overview (11/07/2024): Diagnosed at 34 weeks Nutrition consult ordered [...] RPM reviewed; just enrolled yesterday, readings stable 10/31/20246100-AHL-ktjv missed readings. Only one fasting blood sugars reported in 6 days. Reported values all within normal limits with exception of one post prandial dinner reading = 143. Sent message to be consistent with testing four times daily and reporting. 11/07/20244018-FGI-cih reporting. Sent message via Current [employer] to update values from past week. Sent message to patient and [facility] PARs to schedule patient for follow up ADAPT appointment. Assessment & Plan (10/20/2024 3:03 PM EST): [...] Recommend nutrition consult with RDN (Registered Dietitian Camera Systems Engineer). 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 [facility] ultrasound for anatomy at 19-20 weeks [...] delivering provider secondary to severe anxiety, recommend Legal Activity Adjudicator counseling to include the potential risks of [...] as of this encounter (statuses as of 11/08/2024) Resolved Problems Problem Noted Date Diagnosed Date Resolved Date with 22 completed weeks gestation 07/29/2024 07/29/2024 cardiac anomaly compli cating , antepartum 07/18/2024 09/27/2024 Overview (07/29/2024): See [facility] ultrasound report from 07/18/2024 Genetics counseling [...] as of this encounter (statuses as of 11/08/2024) Immunizations Name Administration Dates Next Due DTP/HIB (Tetramune) 04/16/1995, 4,05/01/1994,02/26 DTaP Dipth/Tet/Acell Pertussis (Infanrix), Peds 12/27/1997 H1N1 2009 Influenza, Intranasal 07/16/2009 HPV Vaccine, 4-Valent 08/28/2008,04/03/2008,10/2007 Hepatitis B, 0-19 yrs 07/22/1994,02/26/1994,10/1993 Influenza Vaccine, Live, Int ranasal, Trivalent (Flumist) 06/30/2011 MMR - Measles/Mumps/Rubella Vaccine 12/27/1997,0 01/22/1995 Meningococcal Conjugate Vacc ine (Menactra/Menveo) 11/07/2011 Meningococcal Polysaccharide Vaccine (Menommune) 04/28/2005 OPV - Polio Virus Vaccine (Oral) 998,07/22/1994,05/01/1994,02/26 Pneumococcal Polysaccharide PPV23 (Pneumovax) 05/06/2013 Seasonal Influenza Vac., MDV , IM, 0.5 mL (Fluzone) 07/18/2002 TB Giuliana Test 01/22/1995 TDAP (age 10 and older)(Boostrix) 04/28/2005 TDAP, Age 7 and older, IM (Adacel) 09/13/2024, Varicella Vaccine (Chicken Pox) 07/16/2009,04/16 documented as of this encounter Social History [...] have money to get more. Patient declined [place] Depression Scale Answer Date Recorded [place] Depression Scale Total 11 06/17/2024 The thought [...] No 06/17/2024 Does the household have a mclaren thumb regionr source of income? (Household - for ages [...] Telephone Encounter - Juliet Razo OSA - 11/08/2024 3:09 PM EDT Images from the original note were not included. Phone call to patient. Left message on [employer]'s voice mail. Encouraged patient to return call to [facility] to assist with scheduling. please schedule pt for f/u adapt in the next week-thanks Received: Yesterday Wally Erazo, RN P [facility] Referral Scheduling Pool/Clas * Telephone Encounter - Juliet Razo OSA - 10/14/2024 3:31 PM EST Spoke with Sally. Appointment scheduled. Patient aware of date, time and location of Maternal Medicine appointment. Pt already had growth scan scheduled. * Telephone Encounter - Sunita Mandujano CCMA - 10/14/2024 9:49 AM EST Estimated Date of Delivery: 11/28/24 Please schedule for 45 MINUTE ADAPT WITH PRODUCTION OPERATOR, in time frame of within 1 week at location [facility] with the indication of GDM. Please schedule growth in 3-4 weeks (around 11/03-11/10) Referring Provider: Nevaeh Baugh PA-C documented in this encounter Plan of Treatment Upcoming Encounters Date Type Department Care Team (Late st Contact Info) Description 11/16/2024 2:00 PM EDT Imaging Radiology [address] [place] [address] 11/16/2024 3:00 PM EDT Office Visit Gynecology/Obstetrics [facility] [address] [place] [place] [address] Ijeoma Mccurdy CRNP [address] [place] [address] 11/23/2024 2:00 PM EDT Imaging Radiology [place] [address] [address] [place] [address] 11/23/2024 3:00 PM EDT Office Visit Gynecology/Obstetrics Kyle Mariano [address] [place] [address] Ijeoma Mccurdy CRNP [address] [place] [address] Health Maintenance Due Date Last Done Comments [...]
--- OUTSIDE RECORDS SUMMARY | 2024-11-18 07:07 | External Medical Summary | Summary of Care ---
Author Name Unknown Organization [facility] Address [address] [place] [address] Phone [phone] Care Team Providers Care Case Folder Name Role Phone Unavailable Primary Care Provider Unavailabl e Reason for Visit * Reason Onset Date Comments Self-Blood Glucose Monitoring 11/08/2024 Encounter Details Date Type Department Care Team ([facility] st Contact Info) Description 11/08/2024 Telephone Net Solutions Architect Obstetrics Maternal Medicine [facility], Kyra Arroyo [address] [facility] [place] [phone] [facility], Nurse Net Solutions Architect [facility] [address] [address] Self-Blood Glucose Monitoring (/) Allergies Active Allergy Reactions Criticality Noted Date [...] the morning. 30 Capsule 1 5 Active [employer] Verio Flex System w/Device KitIndications:G estational diabetes mellitus (GDM), antepartum, gestational diabetes method of control unspecified Use to test blood sugars 4 times daily (fasting, 1 hour after breakfast, lunch, and dinner) 1 Kit 5 Active [employer] In Vitro Strip (Glucose Blood)Indication s:Gestational diabetes mellitus (GDM), antepartum, gestational diabetes method of control unspecified Use to test blood sugars 4 times daily (fasting, 1 hour after breakfast, lunch, and dinner) 125 Strip 6 5 Active [employer] Delica Lancets 30GIndications:G estational diabetes mellitus (GDM), [...] RPM reviewed; just enrolled yesterday, readings stable 10/31/20247826-AFW-wrue missed readings. Only one fasting blood sugars reported in 6 days. Reported values all within normal limits with exception of one post prandial dinner reading = 143. Sent message to be consistent with testing four times daily and reporting. 11/07/[id number]-aoc reporting. Sent message via [employer] to update values from past week. Sent message to patient and [facility] PARs to schedule patient for follow up [...] Recommend nutrition consult with RDN (Registered Dietitian Shot Tube Machine Tender). Lifestyle changes are also indicated including optimizing [...] 33 wks following PPROM and cord prolapse. [facility] recommends twice weekly NSTs at 31 [...] tumor of Right ovary Surgery done through [facility] S/p right salping-oophorectomy Tumor confined to [...] ultrasound to ensure accurate dating of . [facility] ultrasound for anatomy at 19-20 weeks [...] delivering provider secondary to severe anxiety, recommend Industrial Methods Consultant counseling to include the potential risks [...] , antepartum 07/18/2024 09/27/2024 Overview (07/29/2024): See [facility] ultrasound report from 07/18/2024 Genetics counseling [...] 11/08/2024) Immunizations Name Administration Dates Next Due H1N1 [...] have money to get more. Patient declined [place] Depression Scale Answer Date Recorded [place] Depression Scale Total 11 06/17/2024 The thought [...] encounter Miscellaneous Notes * Telephone Encounter - Wally Erazo RN - 11/08/2024 10:18 AM EDT Called patient to update blood sugars. She states she is currently being evaluated in labor and delivery for her blood pressure and states she cannot talk at this time. documented in this encounter Plan of Treatment Upcoming Encounters Date Type Department Care Team (Late st Contact Info) Description 11/09/2024 2:00 PM EDT Imaging Radiology [facility] 2nd [facility] [address] [place] [address] 11/09/2024 3:00 PM EDT Office Visit Gynecology/Obstetrics [facility] [address] [place] [address] Ijeoma Mccurdy CRNP [address] [place] [address] 11/16/2024 2:00 PM EDT Imaging Radiology [address] [place] [address] 11/16/2024 3:00 PM EDT Office Visit Gynecology/Obstetrics [facility] [address] [place] [address] Ijeoma Mccurdy CRNP [address] [place] [address] 11/23/2024 2:00 PM EDT Imaging Radiology [address] [place] [address] 11/23/2024 3:00 PM EDT Office Visit Gynecology/Obstetrics [facility] [address] [place] [address] Ijeoma Mccurdy CRNP [address] [place] [address] Health Maintenance Due Date Last Done Comments [...]
--- OUTSIDE RECORDS SUMMARY | 2024-11-18 07:07 | External Medical Summary | Summary of Care ---
Author Name Unknown Organization [facility] Address [address] [place] [address] Phone [phone] Care Team Providers Care Vp Revenue Cycle Name Role Phone Unavailable Primary Care Provider Unavailabl e Encounter Details Date Type Department Care Team (Late st Contact Info) Description 11/10/2024 Telephone Health Researcher Obstetrics Maternal Medicine, [place] [address] [place] [address] [place], Nurse Health Researcher [facility] [address] [place], [place] [id number] Allergies Active Allergy Reactions Criticality Noted Date Comments Ciprofloxacin Nausea/vomiting Low 10/21/2012 documented as of this encounter (statuses as of 11/10/2024) Medications 27-1 MG Oral Tablet Take 1 Tablet by mouth every evening. Active Nicoderm CQ 7 MG/24HR Transdermal Patch [address] 1 Patch topically on the skin daily. 04/18/20 24 Active Methylphenidate HCl 5 MG Oral Tablet (Ritalin) 2 Tablets. 08/17/20 24 Active Magnesium 250 MG Oral Capsule Take by mouth. Active Famotidine 40 MG Oral Tablet (Pepcid) Take 1 Tablet by mouth in the morning. Active Omeprazole 20 MG Oral Capsule Delayed Release (PriLOSEC) Take 1 Capsule by mouth in the morning. 30 Capsule 1 10/10/[address] [employer] High[employer]io Flex System w/Device KitIndications: Gestational diabetes mellitus (GDM), antepartum, gestational diabetes method of control unspecified Use to test blood sugars 4 times daily (fasting, 1 hour after breakfast, lunch, and dinner) 1 Kit 10/13/19 Active [employer] Verio In Vitro Strip (Glucose Blood)Indicatio ns:Gestational diabetes mellitus (GDM), antepartum, gestational diabetes method of control unspecified Use to test blood sugars 4 times daily (fasting, 1 hour after breakfast, lunch, and dinner) 125 Strip 6 10/13/19 Active OneTouch Delica Lancets 30GIndications: Gestational diabetes mellitus (GDM), antepartum, gestational diabetes method of control unspecified Use to test blood sugars 4 times daily (fasting, 1 hour after breakfast, lunch, and dinner) 200 Each 6 10/13/19 Active Breast Pump Z39.1, double electric pump 1 Each 10/20/19 025 Discontinued documented as of this encounter (statuses as of 11/10/2024) Active Problems Problem Noted Date Diagnosed Date [...] RPM reviewed; just enrolled yesterday, readings stable 10/31/20241786-GSJ-qzir missed readings. Only one fasting blood sugars reported in 6 days. Reported values all within normal limits with exception of one post prandial dinner reading = 143. Sent message to be consistent with testing four times daily and reporting. 11/07/20241362-OWW-wdz reporting. Sent message via Current Health to update values from past week. Sent message to patient and [facility] PARs to schedule [...] Recommend nutrition consult with RDN (Registered Dietitian Government Sales Manager). 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 [facility] ultrasound for anatomy at 19-20 weeks [...] delivering provider secondary to severe anxiety, recommend Drafter Construction counseling to include the potential risks of [...] as of this encounter (statuses as of 11/10/2024) Resolved Problems Problem Noted Date Diagnosed Date Resolved Date with 22 completed weeks gestation 07/29/2024 07/29/2024 cardiac anomaly compli cating , antepartum 07/18/2024 09/27/2024 Overview (07/29/2024): See [facility] ultrasound report from 07/18/2024 Genetics counseling [...] as of this encounter (statuses as of 11/10/2024) Immunizations Name Administration Dates Next Due H1N1 [...] have money to get more. Patient declined [place] Depression Scale Answer Date Recorded [place] Depression Scale Total 11 06/17/2024 The thought [...] encounter Miscellaneous Notes * Telephone Encounter - Radha López OSA - 11/10/2024 12:03 PM EDT Phone call to patient. Left message on [employer] voice mail. Encouraged patient to return call to [facility] to assist with scheduling. documented in this encounter Plan of Treatment Upcoming Encounters Date Type Department Care Team (Late st Contact Info) Description 11/16/2024 2:00 PM EDT Imaging Radiology [facility] 2nd [facility] [address] [place] [address] 11/16/2024 3:00 PM EDT Office Visit Gynecology/Obstetrics [facility] [address] [place] [address] Ijeoma Mccurdy CRNP 132 [facility] [place] [address] 11/23/2024 2:00 PM EDT Imaging Radiology [facility] 2nd Floor, [place] [address] [place] [address] 11/23/2024 3:00 PM EDT Office Visit Gynecology/Obstetrics [facility] [address] [place] [address] Ijeoma Mccurdy CRNP [address] [place] [address] Health Maintenance Due Date Last Done Comments [...]
--- OUTSIDE RECORDS SUMMARY | 2024-11-18 07:07 | External Medical Summary | Summary of Care ---
Author Name Unknown Organization [facility] [address] [facility] [address] Phone [phone] Care Team Providers Care Parachute Packer Name Role Phone Unavailable Primary Care Provider Unavailabl e Encounter Details Date Type Department Care Team (Late st Contact Info) Description 11/08/2024 Telephone Gynecology/Obstetrics [facility] [address] [place] [address] Aakash Love MD [address] [place] [phone] Allergies Active Allergy Reactions Criticality Noted Date [...] lunch, and dinner) 1 Kit 5 Active [employer] In Vitro Strip (Glucose Blood)Indication s:Gestational diabetes mellitus (GDM), antepartum, gestational diabetes method of control unspecified Use to test blood sugars 4 times daily (fasting, 1 hour after breakfast, lunch, and dinner) 125 Strip 6 5 Active [employer] DelSurgeonKidz Lancets 30GIndications:G estational diabetes mellitus (GDM), antepartum, [...] RPM reviewed; just enrolled yesterday, readings stable 10/31/20248974-PVQ-kmqj missed readings. Only one fasting blood sugars reported in 6 days. Reported values all within normal limits with exception of one post prandial dinner reading = 143. Sent message to be consistent with testing four times daily and reporting. 11/07/20245057-YLK-hhm reporting. Sent message via Current Health to update values from past week. Sent message to patient and [facility] PARs to schedule patient for follow up [...] Recommend nutrition consult with RDN (Registered Dietitian Internal Grinding Machine Operator). Lifestyle changes are also indicated including optimizing [...] 33 wks following PPROM and cord prolapse. 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 [...] ultrasound to ensure accurate dating of . [facility] ultrasound for anatomy at 19-20 [...] delivering provider secondary to severe anxiety, recommend Mud Cleaner Operator counseling to include the potential risks [...] , antepartum 07/18/2024 09/27/2024 Overview (07/29/2024): See [facility] ultrasound report from 07/18/2024 Genetics [...] money to get more. Patient declined [place] Depression Scale Answer Date Recorded [place] Depression Scale Total 11 06/17/2024 The thought [...] encounter Miscellaneous Notes * Telephone Encounter - Yuliet Bruno LPN - 11/08/2024 9:43 AM EDT Pt is currently 37w1d with an Estimated Date of Delivery: 11/28/24 - Called with concerns of headache this am and elevated BPs 150/100 at home when checking. Offered her an appointment in the office for BP check and urine dip. Patient stated that she is not "fucking around" and she is going to L&D. I let L&D and Dr. Love know. documented in this encounter Plan of Treatment Upcoming Encounters Date Type Department Care Team (Late st Contact Info) Description 11/09/2024 2:00 PM EDT Imaging Radiology [facility] [address] [place] [address] 11/09/2024 3:00 PM EDT Office Visit Gynecology/Obstetrics [address] [place] [place], [place] [address] Ijeoma Mccurdy CRNP [address] [place], [place] [address] 11/16/2024 2:00 PM EDT Imaging Radiology [address] [place] [address] 11/16/2024 3:00 PM EDT Office Visit Gynecology/Obstetrics [facility] [address] [place], [place] [address] Ijeoma Mccurdy CRNP [address] [place] [address] 11/23/2024 2:00 PM EDT Imaging Radiology [address] [place] [address] 11/23/2024 3:00 PM EDT Office Visit Gynecology/Obstetrics [facility] [address] [place] [address] Ijeoma Mccurdy CRNP [address] [place], [place] [address] Health Maintenance Due Date Last Done Comments [...]
[2024-11-18] MEDS ORDERED: MAGNESIUM OXIDE 400 MG TAB PO SCH (08:00)
[2024-11-18] MEDS ORDERED: bisacodyL 10 MG SUPP PR PRN (08:38)
[2024-11-18] MEDS ORDERED: ACETAMINOPHEN 325 MG TAB PO PRN (08:38)
[2024-11-18] MEDS ORDERED: BENZOCAINE 20% SPRY 85 APPLN/85 GM CAN EXT PRN (08:38)
[2024-11-18] MEDS ORDERED: HYDROCORTISONE ACETATE 25 MG SUPP PR PRN (08:38)
--- NOTE | 2024-11-18 08:44 | Delivery Summary ---
Vaginal Delivery Summary Date of Service November 18, 2024 Vaginal Delivery Summary pt fully dilated and pushing, prepped and draped in usual fashion, pt pushed for about 30 min, delivered alive viable female infant in TY position at 8: 26 AM, placed the infant on the mothers abdomen, bulb suctioned nose and mouth , cord clamped and cut after one min, by FOB. placenta delivered spontaneously and complete at 8: 31 am. Left labia lacerations noted, repaired with figure fo eight stitch with 2 .0 Vicryl. IV Pitocin started. EBL: 250 cc APGARS; 7, 9 at 1 and 5 min
[2024-11-18] MEDS: BUPIVACAINE 0.25% PF 30 ML VIAL EPI STA (09:20)
[2024-11-18] MEDS: fentaNYL citrate PF 100 MCG/2 ML VIAL EPI STA (09:20)
[2024-11-18] MEDS: DIPHTHER/TETAN/PERTUS Vaccine (Tdap, Adol/Adult) 0.5mL IM ONE (09:20)
[2024-11-18] MEDS: LIDOCAINE 2%/EPINEPHRINE 1:200,000 20 ML PF EPI STA (09:20)
[2024-11-18] MEDS: SODIUM CHLORIDE 0.9% PF INJ 10 ML VIAL EPI STA (09:20)
[2024-11-18] MEDS ORDERED: Nursing to Pharmacy Communication SCH (09:30)
--- NOTE | 2024-11-18 09:39 | Anesthesia Procedure Note ---
Date of Service November 18, 2024 Anesthesia Post Epidural Note Vital Signs Vital Signs: Temp Pulse Resp BP Pulse Ox 36.9 C 93 H 18 134/70 96 11/18/24 04:35 11/18/24 09:35 11/18/24 04:35 11/18/24 09:35 11/18/24 08:42 Notes Mental Status: alert / awake / arousable and participated in evaluation Patient Amnestic to Procedure: No Nausea / Vomiting: adequately controlled Pain: adequately controlled Airway Patency, RR, SpO2: stable & adequate BP & HR: stable & adequate Hydration State: stable & adequate Neuraxial Anesthesia: was administered and sensory block is resolving Anesthetic Complications: no major complications apparent and Pt Satisfied with anesthetic care Epidural: Removed without complications and With tip intact
[2024-11-18] MEDS: METHYLPHENIDATE HCL 10 MG TABLET PO SCH (12:13)
[2024-11-18] MEDS: DOCUSATE SODIUM 100 MG CAP PO SCH (20:26)
[2024-11-18] MEDS: IBUPROFEN 600 MG TAB PO PRN (20:26)
[2024-11-18] MEDS: MAGNESIUM OXIDE 400 MG TAB PO SCH (20:27)
[2024-11-18] MEDS: ACETAMINOPHEN 325 MG TAB PO PRN (20:27)
[2024-11-18 23:13] VITALS: O2SAT 98
[2024-11-19] MEDS ORDERED: oxyCODONE HCL IR 5 MG TAB (IMMEDIATE RELEASE) PO PRN (00:14)
[2024-11-19] MEDS ORDERED: ONDANSETRON INJ 2 MG/ML 2 ML VIAL IV PRN (00:15)
[2024-11-19 06:06] LABS: Hematocrit (blood only) 35.2 % (37.0-47.0); Hemoglobin 11.9 g/dl (12.0-16.0); Mean Corpuscular Hemoglobin 31.5 pg (25.0-34.0); Mean Corpuscular Hgb Conc 33.8 g/dL (32.0-36.0); Mean Corpuscular Volume 93.1 fL (80.0-100.0); Mean Platelet Volume 11.9 fL (9.4-12.4); Platelet Count 146 K/uL (130-400); RDW Coefficient of Variation 12.9 % (11.5-14.5); RDW Standard Deviation 43.9 fL (36.4-46.3); Red Blood Count 3.78 M/uL (4.20-5.40)
--- NOTE | 2024-11-19 07:21 | Obstetrical Progress Note ---
Date of Service November 19, 2024 Assessment & Plan (1) Vaginal delivery: Present on Admission?: No (2) Normal course: Present on Admission?: No (3) Elevated blood pressure reading: Present on Admission?: No Plan continue routine course Elevated blood pressure regular diet encourage ambulation Ordered PIH labs , total pr/cr ratio discharge plan later this evening if pt decides top be discharged Admission and Anticipated Discharge Date Admission Date: November 18, 2024 Subjective s/p , uneventful Pt denies heavy vaginal bleeding, vaginal pain but has nausea and cramping last night for which OXY IR and Zofran was given. pt denies shortness of breadth, palpitations, dizziness etc. Normal lochia. Planning to breast feed the baby. Review of Systems Review of Systems: All systems reviewed & are unremarkable except as noted in HPI & below Constitutional: as per Subjective / HPI Gastrointestinal: + nausea Physical Exam Constitutional: WD/WN, vitals as above Respiratory: normal respiratory effort, lungs clear to auscultation Cardiovascular: RRR, no murmur, no edema Chest (Breasts): normal inspection/palpation of breasts Gastrointestinal (Abdomen): normal bowel sounds, soft, nontender, no hepatosplenomegaly Genitourinary: deferred Results & Data Vital Signs (Past 12 Hours) Vital Signs Temp Pulse Resp BP Pulse Ox O2 Del Method 11/19/24 03:02 36.7 C 84 18 147/92 H 98 Room Air 11/18/24 23:11 36.6 C 87 16 147/81 H 98 Room Air 11/18/24 19:51 36.8 C 87 18 143/87 H 99 Room Air
[2024-11-19 08:37] LABS: Basophils # (auto) 0.04 K/uL (0.00-0.20); Basophils % (auto) 0.3 %; Eosinophils # (auto) 0.14 K/uL (0.00-0.50); Eosinophils % (auto) 1.2 %; Hematocrit (blood only) 34.9 % (37.0-47.0); Hemoglobin 11.9 g/dl (12.0-16.0); Immature Granulocytes % (auto) 0.8 %; Lymphocytes # (auto) 2.62 K/uL (1.20-3.40); Lymphocytes % (auto) 21.7 %; Mean Corpuscular Hgb Conc 34.1 g/dL (32.0-36.0); Mean Corpuscular Volume 93.8 fL (80.0-100.0); Mean Platelet Volume 11.9 fL (9.4-12.4); Monocytes # (auto) 0.71 K/uL (0.11-0.59); Monocytes % (auto) 5.9 %; Neutrophils # (auto) 8.49 K/uL (1.40-6.50); Neutrophils % (auto) 70.1 %; Platelet Count 155 K/uL (130-400); RDW Coefficient of Variation 12.8 % (11.5-14.5); RDW Standard Deviation 44.3 fL (36.4-46.3); Red Blood Count 3.72 M/uL (4.20-5.40)
[2024-11-19 08:55] LABS: BUN Creatinine Ratio 17.4 (10-20); Calcium 8.1 mg/dl (8.6-10.3); Creatinine Clr Calc Pharmacy 124.8 ml/min
[2024-11-19] MEDS: PRENATAL VITAMIN 1 TAB PO SCH (09:03)
[2024-11-19 18:42] LABS: Creatinine Urine Random 28.2 mg/dl; Protein Creatinine Ratio Urine 0.7 (0-0.2)
[2024-11-19] MEDS: bisacodyL 5 MG TABEC PO SCH (23:36)
[2024-11-19] MEDS: LABETALOL HCL 100 MG TAB PO SCH (23:37)
--- NOTE | 2024-11-20 02:21 | Obstetrical Progress Note ---
Date of Service November 20, 2024 Assessment & Plan Admission and Anticipated Discharge Date Admission Date: November 18, 2024 Subjective Patient is seen and examined. She feels well, no complaints other than lack of sleep due to trying to breast feed, decided to switch to formula. Ambulating without dizziness Voiding without difficulty Tolerating regular diet with out N&V Bleeding is minimal No BOSS/ Change in vision/ fever/ chills/ CP/ SOB/ N&V/ Leg pain Vital Signs Temp Pulse Pulse Resp BP Pulse Ox O2 Del Method 11/19/24 22:50 37 C 90 14 155/90 H 98 Room Air 11/19/24 20:00 37.2 C 80 18 143/85 H 98 Room Air 11/19/24 16:50 78 141/87 H 11/19/24 15:42 36.9 C 89 16 154/85 H 98 Room Air 11/19/24 10:48 36.9 C 105 H 16 98 11/19/24 08:33 36.9 C 90 16 136/88 98 Room Air 11/19/24 03:02 36.7 C 84 18 147/92 H 98 Room Air Intake and Output 11/19/24 11/19/24 11/20/24 14:59 22:59 06:59 Intake Total Balance Intake: Intake (Blood Product) Amt Rho D Immune Globulin Unit [id number] PE: General: Alert, orientedx3, NAD Abd: soft, NT, fundus firm, below Umbilicus Perineum intact, Lochia rubra minimal Ext; NT, 1+/1+ edema, better than on admission, no clonus AP: 28 yo s/p , ppd# 2 VSS Afebrile doing well Had elevated BP's yesterday, asymptomatic, started on BLANQUITA Labetalol last night Repeat BP: 130/74 h/o depression/ anxiety, ADHD, on Ritalin Recommended Mental health consult but she declined, states she needs to sleep, if she needs she has a tead of mental health providers she sees them regularly and she can reach them if she would need Continue routine care All questions were answered D/C home after lunch if BP's stable Results & Data Vital Signs (Past 12 Hours) Vital Signs Temp Pulse Resp BP Pulse Ox O2 Del Method 11/19/24 22:50 37 C 90 14 155/90 H 98 Room Air 11/19/24 20:00 37.2 C 80 18 143/85 H 98 Room Air 11/19/24 16:50 78 141/87 H 11/19/24 15:42 36.9 C 89 16 154/85 H 98 Room Air
[2024-11-20 06:35] LABS: Basophils # (auto) 0.05 K/uL (0.00-0.20); Basophils % (auto) 0.5 %; Eosinophils # (auto) 0.21 K/uL (0.00-0.50); Eosinophils % (auto) 2.1 %; Hematocrit (blood only) 35.2 % (37.0-47.0); Hemoglobin 11.8 g/dl (12.0-16.0); Immature Granulocytes # (auto) 0.14 K/uL (0.01-0.20); Immature Granulocytes % (auto) 1.4 %; Lymphocytes # (auto) 2.33 K/uL (1.20-3.40); Lymphocytes % (auto) 22.9 %; Mean Corpuscular Hemoglobin 31.6 pg (25.0-34.0); Mean Corpuscular Hgb Conc 33.5 g/dL (32.0-36.0); Mean Corpuscular Volume 94.1 fL (80.0-100.0); Mean Platelet Volume 11.5 fL (9.4-12.4); Monocytes # (auto) 0.53 K/uL (0.11-0.59); Monocytes % (auto) 5.2 %; Neutrophils # (auto) 6.93 K/uL (1.40-6.50); Neutrophils % (auto) 67.9 %; Platelet Count 181 K/uL (130-400); RDW Coefficient of Variation 12.7 % (11.5-14.5); RDW Standard Deviation 43.8 fL (36.4-46.3); Red Blood Count 3.74 M/uL (4.20-5.40); White Blood Count 10.19 K/ul (4.8-10.8)
[2024-11-20 06:54] LABS: Albumin Globulin Ratio 1.4 (0.9-2); Bilirubin,Total 0.2 mg/dl (0.2-1.0); Calcium 8.2 mg/dl (8.6-10.3); Creatinine Clr Calc Pharmacy 138.9 ml/min; Globulin 2.2 gm/dl (2.5-4.0); Potassium 3.9 mmol/L (3.5-5.1); Total Protein 5.2 gm/dl (6.0-8.3)
[2024-11-20 10:06] VITALS: BP 129/74
[2024-11-20 12:27] VITALS: PULSE 86; RESP 16; TEMP 98.8
--- NOTE | 2024-11-20 13:12 | Obstetrical Progress Note ---
Date of Service November 20, 2024 Assessment & Plan Admission and Anticipated Discharge Date Admission Date: November 18, 2024 Subjective Patient feels much better She slept well and wants to be discharged BP's WNL She desires to start her Wellbutrin she was on before and f/u with her own Psychiatrist All questions were answered and discussed when to call f/u in office for BP check this week Results & Data Vital Signs (Past 12 Hours) Vital Signs Temp Pulse Resp BP BP Pulse Ox O2 Del Method 11/20/24 12:05 37.1 C 86 16 98 Room Air 11/20/24 10:04 37 C 84 18 138/79 129/74 98 11/20/24 07:50 37 C 84 18 138/79 Room Air 11/20/24 02:00 80 132/74
[2024-11-20] MEDS: buPROPion HCl 75 MG TABLET PO STA (14:01)
== END 2024-11-20 15:00 | disposition home health service (06) | DRG 806 ==
LOC: OPB 23:29 → 4S1 23:30 → 4E2 11-18 11:15